=== PATIENT | female | born 1945 | race Two or more races ===

== ENCOUNTER 2024-10-26 09:49 | Inpatient (IN) | payer OTHER, MEDICAID, MEDICARE, SELFPAY ==
[2024-10-26] VITALS (10 sets, daily range): BP systolic 90–158; BP diastolic 53–84; PULSE 50–73; RESP 15–98; TEMP 36.3–36.7; O2SAT 97–100; BMI 27.3
--- NOTE | 2024-10-26 10:03 | EKG_ITS ---
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
--- NOTE | 2024-10-26 10:04 | XR_ITS ---
Examination: CT brain head without contrast. 2-D sagittal coronal reconstructions Date and time of exam:October 26, 2024, 1009 hrs., Comparison April 30, 2011 Indications: Stroke alert, onset focal neurologic deficit ataxia dizziness beginning 2 days ago worse this morning CTDI: vol (mGy):45.2. DLP: (mGycm):909 Technique: Multiple CT axial sections of the brain have been obtained, 5 mm slice thickness. Contrast has not been administered. 2-D sagittal, coronal reconstructions have been obtained Low dose protocols were performed. One or more of the following dose reduction techniques were used; automated exposure control, adjustment of the mA and/or KV according to patient size, use of iterative reconstruction technique. Findings: No significant ventricular enlargement. Intra-axial or extra-axial hemorrhage density is not seen. No mass effect or midline shift Basal cisterns are not remarkable. Fourth ventricle is midline. Cranial vault intact. Impression: Negative for acute hemorrhage, mass effect or midline shift
--- NOTE | 2024-10-26 10:04 | XR_ITS ---
Examination: CTA carotids with intravenous contrast CTA brain, head with intravenous contrast. 2-D sagittal, coronal reconstructions. 3-D reconstructions. Exam date and time: October 26, 2024, 1022 hrs. Indications: Stroke alert, onset focal neurologic deficit, dizziness beginning 2 days ago, worse this morning CTDI: vol (mGy) 32.1 DLP: (mGycm) 431 Technique: Multiple CTA axial brain, head carotid images post intravenous contrast injection 75 cc, Isovue-370. 2-D sagittal, coronal reconstructions. 3-D reconstructions, 3-D post processing including vascular maximum intensity projection images. Low dose protocols were performed. One or more of the following dose reduction techniques were used; automated exposure control, adjustment of the mA and/or KV according to patient size, use of iterative reconstruction technique. Findings: No significant common carotid carotid bifurcation or internal carotid artery stenoses. Dominant right vertebral artery in the neck, no critical vertebral artery stenoses Intracranial vertebral arteries, basilar artery and posterior cerebral branches No large vessel occlusions. Juxtasellar supraclinoid portions internal carotid arteries intact M1 segments middle cerebral arteries middle cerebral artery trifurcation vessels and anterior cerebral arteries fill with no large vessel occlusions Impression: No significant neck arterial stenoses No cerebral large vessel arterial occlusions or thrombus
--- NOTE | 2024-10-26 10:04 | XR_ITS ---
Examination: AP chest single view Technique one AP portable sitting chest single view Date and time: October 26, 2024, 1038 hrs., Comparison February 11, 2023. Indications: Dizziness today. Findings: No significant cardiac enlargement. No pneumonia or pulmonary edema. Prominent osteopenia. Impression: No pneumonia or pulmonary edema.
--- NOTE | 2024-10-26 10:12 | PD.EDDIZZY ---
ED Dizzyness RME/HPI General Chief Complaint: Dizziness Stated Complaint: GRIGGS/DIZZY AFTER EATING TODAY Time Seen by Provider: 10/26/24 10:06 Arrival date/time: 10/26/24 09:49 RME / HPI RME / HPI Narrative: 79 year old female with history of hypertension, diabetes, hyperlipidemia presents to the ED for evaluation of dizziness today. Patient reports the dizziness had been intermittent over the last 2-days. However, noted dizziness began after standing from eating breakfast at 09:00 AM today. Accompanied by a pulsating headache and blurred vision. States she took two 0.4mg SL Nitro with temporary improvement. States when symptoms returned several minutes later she took an additional two 0.4mg SL Nitro with no improvement, prompting ED visit. No other associated symptoms reported. Denies any changes in speech or gait. Denies fevers, chills, sweats, chest pain, cough, shortness of breath, abdominal pain, or urinary symptoms. Patient states she went to bed and woke up at 06:00 AM today feeling at her usual state of health. Related Data Home Medications ?Medication ?Instructions ?Recorded ?Confirmed carvedilol 3.125 mg tablet 3.125 mg PO BID 09/19/17 12/16/21 furosemide 40 mg tablet 40 mg PO QDAY 09/19/17 12/16/21 metformin 500 mg tablet,extended 500 mg PO QDAY Diabetes 09/19/17 12/16/21 release 24 hr gabapentin 300 mg capsule 300 mg PO TID 10/21/20 12/16/21 tiotropium bromide 2.5 2 puff inhalation QAM 10/21/20 12/16/21 mcg/actuation mist for inhalation (Spiriva Respimat) atorvastatin 20 mg tablet 20 mg PO HS 12/16/21 12/16/21 lisinopril 10 mg tablet 10 mg PO DAILY 12/16/21 12/16/21 potassium chloride 20 mEq 20 meq PO DAILY 12/16/21 12/16/21 tablet,extended release(part/cryst) Previous Rx's ?Medication ?Instructions ?Recorded albuterol sulfate 90 mcg/actuation 2 puff inhalation Q4H PRN 05/12/21 aerosol inhaler shortness of breath #8.5 grams diclofenac sodium 1 % topical gel 4 g topical QID #100 grams 12/16/21 hydrocodone 5 mg-acetaminophen 325 1 tab PO Q8H PRN pain #10 tabs 12/16/21 mg tablet ondansetron HCl 4 mg tablet 4 mg PO Q8H PRN nausea and 12/16/21 vomiting #14 tabs Allergies Allergy/AdvReac Type Severity Reaction Status Date / Time codeine Allergy Severe Nausea Verified 10/26/24 09:58 Review of Systems Review of Systems Systems Reviewed: All systems reviewed, normal except as documented Past Medical History Past Medical History CARDIAC: Positive Cardiac Disorders, Angina, Hypercholesterolemia and Hypertension RESPIRATORY: Positive Pneumonia GASTROINTESTINAL: Positive Hepatitis (Hep C) and Hiatal Hernia GENITOURINARY: Positive Genitourinary Disorders and Renal Disease REPRODUCTIVE: Positive Previous Pregnancies MUSCULOSKELETAL: Positive Musculoskeletal Disorders and Arthritis ENDOCRINE: Positive Endocrine Disorders, Diabetes Mellitus Type 2 and Hypothyroidism OTHER HISTORY: Positive Falls and Blood Transfusions Surgical History SURGICAL: Positive Abdominal Surgery and Section (X1) Social History SMOKING STATUS: Never smoker ED Exam Narrative Physical exam: GENERAL APPEARANCE: alert and oriented x 4, well-developed, well-nourished, no acute distress HEENT: Normocephalic, atraumatic; pupils equal, round, reactive to light; EOMI; mucous membranes pink, moist; oropharynx clear NECK: Supple LUNGS: CTABL; no wheezes, no rales, no rhonchi HEART: Regular rate, regular rhythm; normal S1, S2; no murmurs ABDOMEN: non distended; normal BS; soft, no tenderness, no guarding, no rebound; no masses, no organomegaly, no hernia BACK: no CVA tenderness EXTREMITIES: atraumatic; no edema NEUROLOGIC: awake; alert and oriented x4; cranial nerves II-XII grossly intact; no focal sensory or motor deficits PSYCHIATRIC: appropriate mood and affect SKIN: warm, dry, normal color; no rashes Course Quality Measures Suspected type of Stroke: Non Acute Last known well (date): 10/26/24 Last known well (time): 06:00 Tenecteplase given: Reason(s) TPA not given: Stroke severity too mild (non-disabling) not given stroke Orders Category Date Time Status Bedside Blood Glucose NOW Care 10/26/24 10:04 Active Ammunition Specialist NOW Care 10/26/24 10:04 Active Continuous Pulse Oximetry NOW Care 10/26/24 10:04 Completed EKG (ED ONLY) *Do not use* NOW Care 10/26/24 10:03 Completed In and Out Catheter NEEDED Care 10/26/24 10:04 Active Insert IV NOW Care 10/26/24 10:04 Active NIH Stroke Scale now Care 10/26/24 10:04 Active NPO NOW Care 10/26/24 10:04 Active Nurse Swallow Screen x1 Care 10/26/24 10:04 Active Consult to Neurology / Tele-Neurology Routine Cons 10/26/24 10:[address] angio stroke protocol Stat Exams 10/26/24 10:[address] stroke protocol Stat Exams 10/26/24 10:04 Completed EKG (ED Only) Stat Exams 10/26/24 10:03 Draft XR chest 1V portable Stat Exams 10/26/24 10:04 Completed Alcohol, Blood Medical Stat Lab 10/26/24 10:08 Completed CBC Stat Lab 10/26/24 10:08 Completed Comprehensive Metabolic Panel Stat Lab 10/26/24 10:08 Completed Drug Screen,Urine Stat Lab 10/26/24 14:18 Completed Magnesium Stat Lab 10/26/24 10:08 Completed Partial Thromboplastin Time Stat Lab 10/26/24 10:08 Completed Prothrombin Time with INR Stat Lab 10/26/24 10:08 Completed Troponin I Stat Lab 10/26/24 10:08 Completed Urinalysis, C/S if Indicated Stat Lab 10/26/24 14:18 Completed Sodium Chloride 0.9% 1000 ml [Ns] 1,000 ml Med 10/26/24 12:46 Discontinued IV 999 mls/hr Oxygen Delivery NOW RT 10/26/24 10:04 Active Vital Signs Vital signs: Vital Signs Pulse Rate 50 L 10/26/24 10:03 Respiratory Rate 16 10/26/24 10:03 Blood Pressure 90/53 L 10/26/24 10:03 Pulse Oximetry (%) 97 10/26/24 10:03 Oxygen Delivery Method Room Air 10/26/24 10:03 Pulse ox is 97% on room air which is adequate. Dizziness MDM Narrative MDM Narrative:: Lela Marie am scribing for and in the presence of Dr. Arreaga. Patient data External records reviewed:: [facility] previous records (I reviewed ED visit on 12/16/2021 ) Clinical information provided by:: patient Social determinants that could affect healthcare access:: none Patient has the following chronic illnesses:: hypertension, diabetes, hyperlipidemia How is presenting disease/condition affected by chronic disease/condition?: exacerbated by Evaluation data The following diagnostics were reviewed and interpreted by me:: lab results, radiology exam(s) and EKG tracing(s) (10/26/2024 @ 10:37 AM. Sinus bradycardia, rate 50, no acute ischemic changes, no STEMI. ) Lab and/or radiology exams considered but not ordered:: None Interpretation Summary: Ordering Physician: Elsa Arreaga MD Date of Service: 10/26/24 Procedure(s): CT stroke protocol Accession Number(s): [id number] cc: Omar Magaña MD; Elsa Arreaga MD~ Examination: CT brain head without contrast. 2-D sagittal coronal reconstructions Date and time of exam:October 26, 2024, 1009 hrs., Comparison April 30, 2011 Indications: Stroke alert, onset focal neurologic deficit ataxia dizziness beginning 2 days ago worse this morning CTDI: vol (mGy):45.2. DLP: (mGycm):909 Technique: Multiple CT axial sections of the brain have been obtained, 5 mm slice thickness. Contrast has not been administered. 2-D sagittal, coronal reconstructions have been obtained Low dose protocols were performed. One or more of the following dose reduction techniques were used; automated exposure control, adjustment of the mA and/or KV according to patient size, use of iterative reconstruction technique. Findings: No significant ventricular enlargement. Intra-axial or extra-axial hemorrhage density is not seen. No mass effect or midline shift Basal cisterns are not remarkable. Fourth ventricle is midline. Cranial vault intact. Impression: Negative for acute hemorrhage, mass effect or midline shift Dictated By: Omar Magaña MD Signed By: <Electronically signed by Omar Magaña MD in OV> 10/26/24 1022 Ordering Physician: Elsa Arreaga MD Date of Service: 10/26/24 Procedure(s): CT angio stroke protocol Accession Number(s): [id number] cc: Brad Ramirez ; Omar Magaña MD; Elsa Arreaga MD~ Examination: CTA carotids with intravenous contrast CTA brain, head with intravenous contrast. 2-D sagittal, coronal reconstructions. 3-D reconstructions. Exam date and time: October 26, 2024, 1022 hrs. Indications: Stroke alert, onset focal neurologic deficit, dizziness beginning 2 days ago, worse this morning CTDI: vol (mGy) 32.1 DLP: (mGycm) 431 Technique: Multiple CTA axial brain, head carotid images post intravenous contrast injection 75 cc, Isovue-370. 2-D sagittal, coronal reconstructions. 3-D reconstructions, 3-D post processing including vascular maximum intensity projection images. Low dose protocols were performed. One or more of the following dose reduction techniques were used; automated exposure control, adjustment of the mA and/or KV according to patient size, use of iterative reconstruction technique. Findings: No significant common carotid carotid bifurcation or internal carotid artery stenoses. Dominant right vertebral artery in the neck, no critical vertebral artery stenoses Intracranial vertebral arteries, basilar artery and posterior cerebral branches No large vessel occlusions. Juxtasellar supraclinoid portions internal carotid arteries intact M1 segments middle cerebral arteries middle cerebral artery trifurcation vessels and anterior cerebral arteries fill with no large vessel occlusions Impression: No significant neck arterial stenoses No cerebral large vessel arterial occlusions or thrombus Dictated By: Omar Magaña MD Signed By: <Electronically signed by Omar Magaña MD in OV> 10/26/24 1120 Ordering Physician: Elsa Arreaga MD Date of Service: 10/26/24 Procedure(s): XR chest 1V portable Accession Number(s): [id number] cc: Brad Ramirez ; Omar Magaña MD; Elsa Arreaga MD~ Examination: AP chest single view Technique one AP portable sitting chest single view Date and time: October 26, 2024, 1038 hrs., Comparison February 11, 2023. Indications: Dizziness today. Findings: No significant cardiac enlargement. No pneumonia or pulmonary edema. Prominent osteopenia. Impression: No pneumonia or pulmonary edema. Dictated By: Omar Magaña MD Signed By: <Electronically signed by Omar Magaña MD in OV> 10/26/24 1121 Medications / Prescriptions Medications or Prescriptions considered but not ordered:: None Medication administrations:: Medication Administration History Acetaminophen (Acetaminophen 325 Mg Tablet) 650 mg PO Q6H PRN PRN Reason: Fever >101.5 Stop: 11/25/24 15:34 Acetaminophen (Acetaminophen 325 Mg Tablet) 650 mg PO Q6H PRN PRN Reason: PAIN SCALE 1-3 (mild Stop: 11/25/24 15:34 Albuterol/Ipratropium (Albuterol/Ipratropium (Duoneb) Rt Radha 3 Ml Nebu) 3 ml INH Q2HR PRN PRN Reason: SHORTNESS OF BREATH OR WHEEZE Stop: 11/25/24 15:34 Albuterol/Ipratropium (Albuterol/Ipratropium (Duoneb) Rt Radha 3 Ml Nebu) 3 ml INH Q4HRRT [facility] Stop: 11/25/24 18:59 Dextrose (Dextrose 50%-Water Inj 50 Ml Syringe) 25 ml IV Q15MIN PRN PRN Reason: BG 50-70 responsive npo pt Stop: 11/25/24 15:43 Dextrose (Dextrose 50%-Water Inj 50 Ml Syringe) 50 ml IV Q15MIN PRN PRN Reason: BG <50 OR BG <70 & pt unresponsive Stop: 11/25/24 15:43 Glucagon (Glucagon Inj 1 Mg Vial) 1 mg IM Q15MIN PRN PRN Reason: BG <70, and no IV access Heparin Sodium (Porcine) (Heparin Sod Inj 5000 Unit/Ml Vial) 5,000 unit SC Q8HR SARIKA Stop: 11/09/24 21:59 Sodium Chloride (Ns) 1,000 mls @ 75 mls/hr IV .[id number] SARIKA Stop: 11/25/24 15:44 Insulin Human Lispro (Insulin Lispro (Admelog) 1 Unit/0.01 Ml Unit) 0 unit SC AC [facility]; Protocol Stop: 11/25/24 16:59 Ondansetron HCl (Ondansetron Inj 2 Mg/Ml Inj 2 Ml) 4 mg IVP Q6H PRN; Protocol PRN Reason: NAUSEA OR VOMITING Stop: 11/25/24 15:34 Discontinued Medications Sodium Chloride (Ns) 1,000 mls @ 999 mls/hr IV .Q1H1M ONE Stop: 10/26/24 13:46 Last Infusion: 10/26/24 15:20 Dose: Infused Documented By: Admin: 10/26/24 14:03 Dose: 999 mls/hr Documented By: YARELIS See above Consultations Consultation(s) initiated? (list below): Yes Consultation #1 (Physician, Specialty, Details): I spoke with teleneurologist Dr. Simmons. States patient is not a TNK candidate. Symptoms most likely due to the hypotension. Time: 10:29 Consultation #2 (Physician, Specialty, Details): I spoke with residents working with hospitalist Dr. Florez. Discussed patients PMHx, HPI, ED course, exam findings, labs, and radiology results. The hospitalist agree to accept the patient for admission. Diagnosis Dizziness Differential Diagnosis: benign paroxysmal positional vertigo, orthostatic hypotension, cerebrovascular accident and transient cerebral ischemia Most likely diagnosis given after review of the tests above:: JAQUI Dehydration Dizziness Admission Indicated Admission indicated?: indicated Admission Request Was there a request for admission?: Yes Admission Attestation Admission request attestation: Discussed case with [] from Hospitalist service regarding admission. Discussed patients ED course, exam findings, labs, and radiology results. The Hospitalist [agrees,declines] to accept the patient for admission. Disposition Plan Disposition Plan: Admit Discharge Plan Plan Patient Disposition: Admit Acute Care w/in Hospital Problem List Clinical Impression: JAQUI (acute kidney injury), Dehydration, Dizziness
--- NOTE | 2024-10-26 10:31 | ESCONSULT_ITS ---
Tele Neuro Consultation Consultation Date 10/26/24 Most Recent Vital Signs Last Vital Signs Pulse 60 10/26/24 10:08 Resp 16 10/26/24 10:03 BP 90/53 L 10/26/24 10:03 Pulse Ox 97 10/26/24 10:03 O2 Del Method Room Air 10/26/24 10:03 Consultation Narrative [facility] Patient Name:???MICHELLE CACERES Date of :???1945 Date of Service:???10/26/2024 10:07:08 Diagnosis:?R42 - Dizziness/ Vertigo/ Giddiness Impression: ?79 year old female with dizziness described as spinning but assocaited with sweating, visual loss and tingling in the arms. CTH is negative. NIHSS 3. Not a candidate for thrombolysis given LKW >4.5 hours and unlikely thrombotic event. Symptoms not consistent with LVO. I feel that her symptoms are most likely presyncopal in nature. Causes of her hypotension will need to be evaluated and addressed by her primary. Sign Out: ? Discussed with Emergency Department Provider Advanced Imaging:Advanced Imaging Deferred because: Stroke not suspected with clinical presentation and exam Metrics: Last Known Well: 10/24/2024 08:00:00 Dispatch Time: 10/26/2024 10:07:08 Arrival Time: 10/26/2024 09:49:00 Initial Response Time: 10/26/2024 10:10:20Symptoms: dizziness. Initial patient interaction: 10/26/2024 10:16:55 NIHSS Assessment Completed: 10/26/2024 10:23:00Patient is not a candidate for Thrombolytic. Thrombolytic Medical Decision: 10/26/2024 10:23:02Patient was not deemed candidate for Thrombolytic because of following reasons: LKW outside 4.5 hr window. . other diagnosis suspected Hypotension. CT Head: I personally reviewed all the CT images that were available to me and it showed: no evidence of hemorrhage. Primary Provider Notified of Diagnostic Impression and Management Plan on: 10/26/2024 10:30:37 History of Present Illness:Patient is a 79 year old Female. Patient was brought by private transportation with symptoms of dizziness. The patient reports several days of dizziness. She was dizzier this morning. She did take some Nitroglycerin on the advice of her PCP. The patient notes intermittent vertigo which started 3 days ago. This was worsened with head movement. The vertigo will last about 15 minutes. She not noted any hearing issues. She is not having issues with her vision. She notes that her vision will go dark when she is dizzy. She will start to sweat. She also gets tingling in the hands. ? Past Medical History: ?Hypertension Medications: No Anticoagulant use? No Antiplatelet use Reviewed EMR for current medications Allergies:? Reviewed,NKDA Social History: Smoking: No Family History: There is no family history of premature cerebrovascular disease pertinent to this consultation ROS : 14 Points Review of Systems was performed and was negative except mentioned in HPI. Past Surgical History: There Is No Surgical History Contributory To Today?s Visit ? Examination: BP(110/49),?Pulse(52), 1A: Level of Consciousness - Alert; keenly responsive?+ 0 1B: Ask Month and Age - Both Questions Right?+ 0 1C: Blink Eyes & Squeeze Hands - Performs Both Tasks?+ 0 2: Test Horizontal Extraocular Movements - Normal?+ 0 3: Test Visual Saenz - No Visual Loss?+ 0 4: Test Facial Palsy (Use Grimace if Obtunded) - Normal symmetry?+ 0 5A: Test Left Arm Motor Drift - No Drift for 10 Seconds?+ 0 5B: Test Right Arm Motor Drift - No Drift for 10 Seconds?+ 0 6A: Test Left Leg Motor Drift - Drift, but doesn't hit bed?+ 1 6B: Test Right Leg Motor Drift - Drift, but doesn't hit bed?+ 1 7: Test Limb Ataxia (FNF/Heel-Perez) - No Ataxia?+ 0 8: Test Sensation - Mild-Moderate Loss: Less Sharp/More Dull?+ 1 9: Test Language/Aphasia - Normal; No aphasia?+ 0 10: Test Dysarthria - Normal?+ 0 11: Test Extinction/Inattention - No abnormality?+ 0 NIHSS Score:?3 NIHSS Free Text :?Right leg decreased sensation. Pre-Morbid Modified Norbert Scale:1 Points = No significant disability despite symptoms; able to carry out all usual duties and activities Spoke with :?Dr. Arreaga, ED Physician This consult was conducted in real time using interactive audio and video technology. Patient was informed of the technology being used for this visit and agreed to proceed. Patient located in hospital and provider located at [facility]/office setting. Patient is being evaluated for possible acute neurologic impairment and high probability of imminent or life-threatening deterioration. I spent total of 35 minutes providing care to this patient, including time for face to face visit via telemedicine, review of medical records, imaging studies and discussion of findings with providers, the patient and/or family. Dr Lanre Simmons [facility] For Inpatient follow-up with [facility] physician please call [facility] at . As we are not an outpatient service for any post hospital discharge needs please contact the hospital for assistance. If you have any questions for the [facility] physicians or need to reconsult for clinical or diagnostic changes please contact us via [facility] at . Signature :?Lanre Simmons ?
[2024-10-26 10:33] LABS: Basophils # (Auto) 0.0 Thou/mm3 (0.0-0.2); Basophils % (Auto) 0 % (0-2.5); Eosinophils # (Auto) 0.2 Thou/mm3 (0.0-0.5); Eosinophils % (Auto) 3 % (0-10); Hematocrit 34.6 % (36.0-46.0); Hemoglobin 11.0 g/dL (12.0-16.0); Immature Granulocytes Auto 0.02 Thou/mm3 (0.00-0.00); Lymphocytes # (Auto) 2.0 Thou/mm3 (1.0-4.8); Lymphocytes % (Auto) 36 % (10-50); Mean Corpuscular HGB Conc 31.8 g/dl (31.0-37.0); Mean Corpuscular Hemoglobin 28.7 pg (25.0-35.0); Mean Corpuscular Volume 90 fL (80-100); Monocytes # (Auto) 0.6 Thou/mm3 (0.0-0.8); Monocytes % (Auto) 10 % (0-12); Neutrophils # (Auto) 2.7 Thou/mm3 (1.8-7.7); Neutrophils % (Auto) 50 % (37-80); Nucleated Red Blood Cell # 0.00 Thou/mm3 (0.00-0.00); Nucleated Red Blood Cell % 0 /100 WBC (0); Platelet Count 171 Thou/mm3 (140-440); RDW Standard Deviation 44.7 fL (36.4-46.3); Red Blood Count 3.83 Miln/mm3 (4.00-5.20); White Blood Count 5.5 Thou/mm3 (3.6-11.0)
[2024-10-26 10:48] LABS: INR 1.0 (0.9-1.3); Partial Thromboplastin Time 25.3 Seconds (22.0-36.0); Prothrombin Time 11.4 Seconds (9.0-12.2)
[2024-10-26 10:54] LABS: Alanine Aminotransferase 12 U/L (10-49); Albumin, Serum 4.0 gm/dL (3.4-4.8); Albumin/Globulin Ratio 1.8 (1.2-2.2); Alcohol, Blood Medical < 3.0 mg/dL (0-10.0); Alkaline Phosphatase 56 U/L (46-116); Anion Gap 10 (7-16); Aspartate Amino Transferase 25 U/L (0-34); BUN/Creatinine Ratio 13 Ratio (12-20); Bilirubin,Total 0.5 mg/dL (0.3-1.2); Blood Urea Nitrogen 35 mg/dL (9-23); Calcium 10.1 mg/dL (8.3-10.6); Calcium (Corrected) 10.1 mg/dL (8.5-10.1); Carbon Dioxide 26.0 mMol/L (20.0-31.0); Chloride 105 mMol/L (98-107); Creatinine (Component) 2.7 mg/dL (0.6-1.3); Estimated Creatinine Clearance 14.5 mL/min (>60); Globulin 2.2 gm/dL (2.3-3.5); Glucose 95 mg/dL (74-106); Magnesium 2.0 mg/dL (1.6-2.6); Osmolality,Calculated 289 (275-295); Potassium 5.0 mMol/L (3.4-5.1); Sodium 141 mMol/L (136-145); Total Protein 6.2 gm/dL (5.7-8.2); Troponin I < 0.020 ng/mL (0.0-0.045); eGFR 18 See Note
[2024-10-26] MEDS: SODIUM CHLORIDE 0.9% 1000 ML 1,000 ML 999 ML IV (14:03)
[2024-10-26 14:33] LABS: Collection Type, Urine Clean Catch; Squamous Epithelial Cell,Urine 0 /hpf (0-5)
[2024-10-26 14:50] LABS: Bilirubin,Urine Negative (Negative); Blood,Urine Negative (Negative); Clarity,Urine Clear (Clear/Hazy); Color,Urine Colorless (Lt Yel-Yel); Culture Indicated,Urine Not Indicated; Glucose, Urine Negative (Negative); Ketones,Urine Negative (Negative); Leukocyte Esterase,Urine Negative (Negative); Nitrite,Urine Negative (Negative); PH,Urine 6.5 (5.0-7.0); Protein,Urine Negative (Neg - Trace); RBC,Urine < 1 /hpf (0-3); Specific Gravity,Urine 1.014 (1.001-1.035); Urobilinogen,Urine Negative mg/dL (0.0-1.0); WBC,Urine < 1 /hpf (0-5)
[2024-10-26 15:01] LABS: Amphetamine/Methamp Scrn,U Negative (Negative); Barbiturate Screen,Urine Negative (Negative); Benzodiazepines Screen,Urine Negative (Negative); Benzoylecgonine Screen, Ur Negative (Negative); Fentanyl Screen,Urine Positive (Negative); Opiate Screen,Urine Positive (Negative); THC Screen,Urine Negative (Negative)
--- NOTE | 2024-10-26 15:35 | ECHO_ITS ---
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 16 - 28 cm?/m? Ascending Aorta Diameter 3.2 cm M-MODE AV Cusp Separation MM 1.4 cm DOPPLER AV Peak Velocity 324.0 cm/s AV Peak Gradient 42.0 mmHg AV Mean Gradient 24.0 mmHg AV Velocity Time Integral 75.0 cm LVOT Peak Velocity 101.0 cm/s LVOT Peak Gradient 4.1 mmHg LVOT Velocity Time Integral 26.3 cm LVOT Cardiac Index 3191.3 cm?/min?m? AV Area Cont Eq vti 1.0 cm? AV Area Cont Eq pk 0.9 cm? MV Area PHT 3.5 cm? Mitral E Point Velocity 62.7 cm/s Mitral A Point Velocity 82.6 cm/s Mitral E to A Ratio 0.8 LV E' Lateral Velocity 6.2 cm/s Mitral E to LV E' Lateral Ratio 10.1 LV E' Septal Velocity 8.4 cm/s Mitral E to LV E' Septal Ratio 7.5 TR Peak Velocity 283.7 cm/s TR Peak Gradient 32.2 mmHg PV Peak Velocity 122.0 cm/s PV Peak Gradient 6.0 mmHg FINDINGS Left Ventricle Normal left ventricular size, wall thickness, systolic function with no obvious regional wall motion abnormalities.There is grade I diastolic dysfunction of the left ventricle (impaired relaxation pattern). The ejection fraction is visually estimated at 55-60%. Right Ventricle The right ventricle is normal in size and systolic function. The estimated right ventricular systolic pressure, 39 mmHg with RAP 3. Mild-Moderated HTN Left Atrium The left atrium is normal by two-dimensional, color flow and Doppler imaging with no structural abnormalities, no thrombus formation present. Right Atrium The right atrium is normal by two-dimensional imaging, color flow and Doppler imaging with no structural abnormalities, no thrombus formation present. Atrial Septum The interatrial septum appears normal with no evidence of a shunt. Aorta The aorta is normal by two-dimensional, color flow and Doppler interrogation. Mitral Valve The mitral valve is normal by two-dimensional, color flow and Doppler interrogation. Trace mitral regurgitation. Aortic Valve Mild thickening of the aortic valve leaflets. Mild aortic valve regurgitation. Moderate aortic valve stenosis. Tricuspid Valve The tricuspid valve is normal by two-dimensional, color flow and Doppler interrogation. There is mild to moderate tricuspid valve regurgitation. Pulmonic Valve The pulmonic valve is not well visualized. There is no significant pulmonic valve regurgitation. Vessels The pulmonary artery appears normal. The inferior vena cava pulmonary and hepatic veins appear normal. Pericardium The pericardium is normal by two-dimensional imaging. There is no significant pericardial effusion. CONCLUSIONS Indication:Bradycardia with hypotension Normal left ventricular size and function. Grade I diastolic dysfunction. Approximate ejection fraction is 55- 60%. Normal Right ventricular size and function. RVSP 39 mmHg with RAP 3. Mild- Moderate HTN. Mild thickening of the aortic valve leaflets. Mild AR and moderate aortic stenosis Mild -moderate TR Nitza Pickett (Electronically Signed) Final Date: 28 October 2024 10:46
--- NOTE | 2024-10-26 15:57 | ESHP_ITS ---
<Statement entered by Linda Walsh MD - 10/26/24 17:03> I attest that I was physically present for the evaluation, physical examination, lab and imaging review of the patient with the residents. I discussed the case with the residents and agree with the findings and plans of care as documented below. After examination of the patient and review of the clinical data I feel that this patient needs admission to the hospital for further treatment/evaluation. Patient is a 79 years old female with past medical history of hypertension, hyperlipidemia, diabetes mellitus, CAD, CKD who presented to the ED with complaint of dizziness, blurry vision, headache. Her symptoms started this morning, when she felt like she is lightheaded, seemed everything looked black and felt like she would faint. She denied any fall and loss of consciousness. In the ED, stroke alert was called, patient underwent head CT and CTA head/neck, both were negative for acute findings. Teleneurology was consulted, recommended workup for presyncope. Patient was prescribed nitroglycerin by her cook helper vegetable which she took during those episode. In the ED, patient was found to have soft blood pressure and bradycardia. She does take beta-blockers at home. She also mentioned she has been having dysphagia with both liquids and solids . She has been eating soft food and has not been able to have good oral intake. Patient has been having these episodes for few months but today was the most severe. At the time of exam, patient had received 1 L of IV fluid bolus with improvement in blood pressure to 150s. Lab results were significant for BUN/creatinine of 39/2.7, baseline creatinine appears to be around 1.3-1.5. We will admit the patient for Workup and management of presyncope. We will obtain orthostatic vitals, echocardiography. We will continue with gentle IV hydration. We will obtain GI consult, speech therapy evaluation for evaluation of dysphagia. On exam, patient noted to have bilateral rhonchi and prolonged expiration, patient was exposed with hardwood smoke during childhood, we will start her on DuoNebs and obtain chest physiotherapy. Started insulin regimen for diabetes. Linda Walsh MD <Statement entered by Jane Sutton MD - 10/26/24 16:18> Ms. Feng is 79 yr female with PMH of CKD, HTN, CAD, and non insulin dependent T2DM who presented to ED today due to dizziness. Patient stated that she was at home in usual state of health when she started feeling dizzy with ringing in her ears. Upon arrival, stroke alert was called and tele neuro evaluated patient. NIHSS score was 3 with low concern of stroke. Patient endorsed taking SL nitroglycerin earlier in the day. She follows with cook helper vegetable Dr. Gomez in [place]. EKG showed bradycardia with HR 50s. She also follows with salon professional Dr. Lala for CKD. Patient has been complaining of dysphagia with solid foods. Has to have small soft meals. We will consult GI Dr. Rey for EGD to evaluate any possible causes of dysphagia. Admit for JAQUI on CKD and presyncope workup including orthostatic vitals and echo. Hold all rate lowering agents including her Coreg. Note reviewed, I agree with most of its contents and agree with the patient's care as documented by Dr. Saab. The patient's management plan was discussed with my attending physician Dr. Walsh. Jane Sutton, PGY-2 Documentation for date of: 10/26/24 HPI History of Present Illness Chief complaint: Dizziness History of present illness: This is a 79 year old female with past medical history of HTN, HLD, DM, CAD, CKD who presents for evaluation of intermittent dizziness that started this morning at 9 am. Patient reports associated pulsating headache, blurry vision, paresthesia in upper extremities, nausea, tinitus, and lightheadedness. Patient denies any changes in her speech or gait, fever, chills, chest pain, shortness of breath or urinary symptoms. Patient states that she was walking in her house this morning when she felt sudden onset lightheadedness and room-spinning dizziness which lasted for a few seconds. The second episode occurred approximately 30 minutes after. Patient denies any falls or LOC. Patient also reports poor PO intake recently secondary to worsening dysphagia to both liquid and solids. Patient states that she has been eating soft food in the last 1-2 years because of her intolerance to most solid and liquid food. Last EGD 6 years ago which was normal. Of note, past states that she took Nitro x2 when she was experiencing her symptoms which did not provide any relief. ED course: 1L bolus NS PMH: HTN, HLD, DM, CAD, CKD PSH:cholecystectomy, 4-5x hernia repairs, Allergies: Codeine-->tachycardia and nausea Meds: amitryiptiline 10 qday, meformin 500 qday, nitroglycerin prn, Carvedilol 3.125 BID, Atorvastatin 40 qday, lisinopril 10 qday, gabapentin 300 TID, Lasix 40 qday SH: denies alcohol, tobacco or drug use Code status: full code Chassis Mechanic: Dr. Gomez in [place] Swiss Type Screw Machine Operator: Dr. Lala GI: Dr. Rey (in the past) Review of Systems Review of Systems Systems Reviewed: All systems reviewed, normal except as documented Exam Vital Signs Temp Pulse Resp BP Pulse Ox O2 Del Method 97.7 F 65 20 158/75 H 100 Room Air 10/26/24 15:13 10/26/24 15:13 10/26/24 15:13 10/26/24 15:13 10/26/24 15:13 10/26/24 15:13 Narrative Exam General: 79 year old appearing female, in no acute distress, WDWN HEENT: NCAT, dry oral mucosa, external ears and nose without gross deformity Neck: Trachea midline, no thyromegaly CV: RRR with S1 and S2 without any murmurs or gallops, +2 pulses at DP Lungs: bilateral rhonchi noted, in no respiratory distress, productive cough at times Ext: no pretibial edema Neuro: CN 2-12 grossly intact, muscle strength and sensation intact throughout Psych: A&Ox3, good affect Results: Labs 10/26/24 10:08 10/26/24 10:08 Labs: Short CBC 10/26/24 Range/Units 10:08 WBC 5.5 (3.6-11.0) Thou/mm3 Hgb 11.0 L (12.0-16.0) g/dL Hct 34.6 L (36.0-46.0) % Plt Count 171 (140-440) Thou/mm3 BMP 10/26/24 10:08 Sodium 141 Potassium 5.0 Chloride 105 Carbon Dioxide 26.0 BUN 35 H Creatinine 2.7 H Glucose 95 Calcium 10.1 Cardiac Enzymes 10/26/24 Range/Units 10:08 Troponin I < 0.020 (0.0-0.045) ng/mL Liver Function 10/26/24 Range/Units 10:08 Total Bilirubin 0.5 (0.3-1.2) mg/dL AST 25 (0-34) U/L ALT 12 (10-49) U/L Alkaline Phosphatase 56 (46-116) U/L Albumin 4.0 (3.4-4.8) gm/dL Urine 10/26/24 Range/Units 14:18 Urine Color Colorless A (Lt Yel-Yel) Urine Clarity Clear (Clear/Hazy) Urine pH 6.5 (5.0-7.0) Ur Specific [place] 1.014 (1.001-1.035) Urine Protein Negative (Neg - Trace) Urine Glucose (UA) Negative (Negative) Quality Measures Quality Measures stroke Suspected type of Stroke: Non Acute Last known well (date): 10/26/24 Last known well (time): 06:00 Tenecteplase given: Reason(s) Tenecteplase not given: Outside the time window not given Rehab services: PT evaluation ordered VTE Prophylaxis: pharmaceutical Antithrombotic by day 2:: not indicated (describe) Statin ordered: n/a Anticoagulation ordered for A-fib or flutter (current or hx): not indicated Advance care planning discussed with:: patient Medications Home Medications and Allergies Home Medications ?Medication ?Instructions ?Recorded ?Confirmed ?Type carvedilol 3.125 mg tablet 3.125 mg PO BID 09/19/17 History furosemide 40 mg tablet 40 mg PO QDAY 09/19/1712/16 History metformin 500 mg tablet,extended 500 mg PO QDAY Diabet es 09/19/17 12/16/21 History release 24 hr gabapentin 300 mg capsule 300 mg PO TID 10/21/2012/16 History tiotropium bromide 2.5 2 puff inhalation QAM 12/16/21 History mcg/actuation mist for inhalation (Spiriva Respimat) atorvastatin 20 mg tablet 20 mg PO HS 12/16/21 2 History lisinopril 10 mg tablet 10 mg PO DAILY 12/16/2111/26 History potassium chloride 20 mEq 20 meq PO DAILY 12/16/21 History tablet,extended release(part/cryst) Allergies Allergy/AdvReac Type Severity Reaction Status Date / Time codeine Allergy Severe Nausea Verified 10/26/24 09:58 Visit Medications Acetaminophen (Acetaminophen 325 Mg Tablet) 650 mg PO Q6H PRN PRN Reason: Fever >101.5 Stop: 11/25/24 15:34 Acetaminophen (Acetaminophen 325 Mg Tablet) 650 mg PO Q6H PRN PRN Reason: PAIN SCALE 1-3 (mild Stop: 11/25/24 15:34 Albuterol/Ipratropium (Albuterol/Ipratropium (Duoneb) Rt Radha 3 Ml Nebu) 3 ml INH Q2HR PRN PRN Reason: SHORTNESS OF BREATH OR WHEEZE Stop: 11/25/24 15:34 Albuterol/Ipratropium (Albuterol/Ipratropium (Duoneb) Rt Radha 3 Ml Nebu) 3 ml INH Q4HRRT SARIKA Stop: 11/25/24 18:59 Dextrose (Dextrose 50%-Water Inj 50 Ml Syringe) 25 ml IV Q15MIN PRN PRN Reason: BG 50-70 responsive npo pt Stop: 11/25/24 15:43 Dextrose (Dextrose 50%-Water Inj 50 Ml Syringe) 50 ml IV Q15MIN PRN PRN Reason: BG <50 OR BG <70 & pt unresponsive Stop: 11/25/24 15:43 Glucagon (Glucagon Inj 1 Mg Vial) 1 mg IM Q15MIN PRN PRN Reason: BG <70, and no IV access Heparin Sodium (Porcine) (Heparin Sod Inj 5000 Unit/Ml Vial) 5,000 unit SC Q8HR SARIKA Stop: 11/09/24 21:59 Sodium Chloride (Ns) 1,000 mls @ 75 mls/hr IV .[id number] SARIKA Stop: 11/25/24 15:44 Insulin Human Lispro (Insulin Lispro (Admelog) 1 Unit/0.01 Ml Unit) 0 unit SC [facility]; Protocol Stop: 11/25/24 16:59 Ondansetron HCl (Ondansetron Inj 2 Mg/Ml Inj 2 Ml) 4 mg IVP Q6H PRN; Protocol PRN Reason: NAUSEA OR VOMITING Stop: 11/25/24 15:34 Discontinued Medications Sodium Chloride (Ns) 1,000 mls @ 999 mls/hr IV .Q1H1M ONE Stop: 10/26/24 13:46 Last Infusion: 10/26/24 15:20 Dose: Infused Assessment & Plan Plan 79F with PMH of HTN, HLD, DM, CAD, CKD who presents for evaluation of intermittent dizziness with associated pulsating headache, blurry vision, paresthesia in upper extremities, nausea, tinnitus, and lightheadedness. Patient also reports poor PO intake recently secondary to worsening dysphagia to both liquid and solids. Stroke ruled out by neuro. Found to have JAQUI. Patient was admitted for presyncope and JAQUI on CKD workup. #Presyncope #Dysphagia #Symptomatic Bradycardia #CAD #Hypotension Patient had 2 episodes of room-spinning dizziness with lightheaded this morning. Patient reports poor PO intake 2/2 dysphagia to both liquid and solid. Tele neuro was consulted who recommended work-up for pre-syncope and hypotension as there are low suspicion for stroke. CT head and neck negative. Trop negative. Hgb at baseline of 11. EKG shows sinus bradycardia. Vitals on admission: bradycardia in 50s with initial BP of 90/53 which improved to 158/75 after administration of 1L bolus NS in the ED. Differentials: Bradycardia secondary to medication (Carvedilol) vs sick sinus vs heart block, hypotension secondary to poor PO intake and dehydration (on lasix at home) vs medication side effect, dysphagie due to stricture vs mass vs hernia. Plan: - Admit to Tele - Ordered TTE - GI consulted, appreciate recs - Consulted speech therapy and dietitian for dysphagia - Ordered repeat EKG - IVF NS maintanance at 75 - Hold home Carvidelol - Orthostatic vital signs - We will resume rest of home medications once med rec is complete - CTM CBC and CMP #JAQUI on CKD Cr on admission was noted to be 2.7; up from baseline of 1.3. Most likely secondary to dehydration in the setting of poor PO intake due to dysphagia Plan: - CTM kidney function #Possible obstructive disease Quentionable underlying COPD. Bilateral rhonchi notd on exam. intermittent productive cough noted. Prolonged expiratory phase. CXR negative. Differentials include COPD vs asthma We will reassess for resolution of symptoms after breathing treatments. Plan: - Schedueled duoneb q4hr - Prn duoneb q2 - Ordered chest physiotherapy #HTN Chronic. Patient was noted to be hypotensive of 90/53 on admission which improved after adminsitration of 1L bolus LR. -Plan: - Hold home carvidelol libia to symptomatic bradycardia - Resume home lisinopril, lasix once med rec is complete #DM Chronic. On Metformin 500 qday at home. Plan: - SSI - Pending A1C Health Maintenance: Dispo: admit to tele DVT prophylaxis: Heparin GI prophylaxis: None Code status: Full code Diet: dyphagia I Plan of care discussed with attending Dr. Walsh and senior resident Dr. Sutton. Samantha Saab DO PGY1
[2024-10-26 16:04] LABS: Cardiac Risk Estimate 3.5 RATIO (3.7-5.6); Cholesterol 145 mg/dL (132-200); Glucose Estimated Average 134 mg/dL (80-131); HDL Cholesterol 41 mg/dL (40-60); Hemoglobin A1C 6.3 % Hgb (4.8-6.0); LDL Cholesterol,Calculated 79 mg/dL (0-130); Triglycerides 126 mg/dL (30-150)
[2024-10-26] MEDS: ACETAMINOPHEN 325 MG TABLET 650 MG PO (17:00)
[2024-10-26] MEDS: SODIUM CHLORIDE 0.9% 1000 ML 1,000 ML 75 ML IV (17:02)
[2024-10-26] MEDS: ALBUTEROL/IPRATROPIUM (Duoneb) RT SOL 3 ML NEBU INH ×2 (18:51→22:34)
--- NOTE | 2024-10-26 20:21 | PD.IMCONS ---
HPI Data of Consult Requesting Physician: Linda Florez MD Primary Care Provider: Brad Ramirez Consult Narrative Reason for consult: Dysphagia chronic liver disease History of present illness: 79 years of female I been asked by the ER physician for dysphagia and evaluation of chronic liver disease due to hepatitis C She has been treated with antiviral therapy and has been negative for hep C RNA by PCR quantitative analysis She has been followed by me a regular basis every 6 months for HCC screening She did have metabolic encephalopathy and CT angio protocol was negative for any acute stroke she was subsequently admitted cc:: cc: Linda Florez MD Review of Systems Review of Systems Systems Reviewed: All systems reviewed, normal except as documented Past Medical History Surgical History OTHER SURGICAL HX: 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 hep C RNA remains undetectable by quantitative analysis Diabetes mellitus type 2 Essential hypertension Hyperlipidemia Meds Home Medications and Allergies Home Medications ?Medication ?Instructions ?Recorded ?Confirmed ?Type carvedilol 3.125 mg tablet 3.125 mg PO BID 09/19/17 12/16/21 History furosemide 40 mg tablet 40 mg PO QDAY 09/19/17 12/16/21 History metformin 500 mg tablet,extended 500 mg PO QDAY Diabetes 09/19/17 12/16/21 History release 24 hr gabapentin 300 mg capsule 300 mg PO TID 10/21/20 12/16/21 History tiotropium bromide 2.5 2 puff inhalation QAM 10/21/20 12/16/21 History mcg/actuation mist for inhalation (Spiriva Respimat) atorvastatin 20 mg tablet 20 mg PO HS 12/16/21 12/16/21 History lisinopril 10 mg tablet 10 mg PO DAILY 12/16/21 12/16/21 History potassium chloride 20 mEq 20 meq PO DAILY 12/16/21 12/16/21 History tablet,extended release(part/cryst) Allergies Allergy/AdvReac Type Severity Reaction Status Date / Time codeine Allergy Severe Nausea Verified 10/26/24 09:58 Exam Vital Signs Temp Pulse Resp BP Pulse Ox O2 Del Method 98.0 F 73 18 125/65 100 Room Air 10/26/24 17:35 10/26/24 18:54 10/26/24 18:54 10/26/24 18:00 10/26/24 18:54 10/26/24 17:35 Constitutional Comments: Chronically ill-appearing Routine Respiratory Exam Comments: Normal to auscultation Routine Abdominal Exam Comments: Soft nontender Results Labs 10/26/24 10:08 10/26/24 10:08 Labs: Short CBC 10/26/24 Range/Units 10:08 WBC 5.5 (3.6-11.0) Thou/mm3 Hgb 11.0 L (12.0-16.0) g/dL Hct 34.6 L (36.0-46.0) % Plt Count 171 (140-440) Thou/mm3 BMP 10/26/24 10:08 Sodium 141 Potassium 5.0 Chloride 105 Carbon Dioxide 26.0 BUN 35 H Creatinine 2.7 H Glucose 95 Calcium 10.1 Cardiac Enzymes 10/26/24 Range/Units 10:08 Troponin I < 0.020 (0.0-0.045) ng/mL Liver Function 10/26/24 Range/Units 10:08 Total Bilirubin 0.5 (0.3-1.2) mg/dL AST 25 (0-34) U/L ALT 12 (10-49) U/L Alkaline Phosphatase 56 (46-116) U/L Albumin 4.0 (3.4-4.8) gm/dL Urine 10/26/24 Range/Units 14:18 Urine Color Colorless A (Lt Yel-Yel) Urine Clarity Clear (Clear/Hazy) Urine pH 6.5 (5.0-7.0) Ur Specific [place] 1.014 (1.001-1.035) Urine Protein Negative (Neg - Trace) Urine Glucose (UA) Negative (Negative) Assessment and Plan Additional Assessment & Plan Additional Plan: # Dysphagia # 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 consent obtained for fiberoptic esophagogastroduodenoscopy with possible biopsy possible therapeutic intervention under intravenous moderate sedation Thank you for the opportunity to participate in care of this patient
[2024-10-26] MEDS: HEPARIN SOD INJ 5000 UNIT/ML VIAL SC (21:18)
[2024-10-27] VITALS (22 sets, daily range): BP systolic 94–184; BP diastolic 50–90; PULSE 49–79; RESP 9–99; TEMP 36–37; O2SAT 92–100; BMI 27.8; BMI 28.0
[2024-10-27] MEDS: ALBUTEROL/IPRATROPIUM (Duoneb) RT SOL 3 ML NEBU INH ×6 (02:57→22:57)
[2024-10-27 05:32] LABS: Basophils # (Auto) 0.0 Thou/mm3 (0.0-0.2); Basophils % (Auto) 0 % (0-2.5); Eosinophils # (Auto) 0.1 Thou/mm3 (0.0-0.5); Eosinophils % (Auto) 3 % (0-10); Hematocrit 30.8 % (36.0-46.0); Hemoglobin 10.1 g/dL (12.0-16.0); Immature Granulocytes Auto 0.01 Thou/mm3 (0.00-0.00); Lymphocytes # (Auto) 1.6 Thou/mm3 (1.0-4.8); Lymphocytes % (Auto) 37 % (10-50); Mean Corpuscular HGB Conc 32.8 g/dl (31.0-37.0); Mean Corpuscular Hemoglobin 29.4 pg (25.0-35.0); Mean Corpuscular Volume 90 fL (80-100); Monocytes # (Auto) 0.5 Thou/mm3 (0.0-0.8); Monocytes % (Auto) 11 % (0-12); Neutrophils # (Auto) 2.1 Thou/mm3 (1.8-7.7); Neutrophils % (Auto) 49 % (37-80); Nucleated Red Blood Cell # 0.00 Thou/mm3 (0.00-0.00); Nucleated Red Blood Cell % 0 /100 WBC (0); Platelet Count 122 Thou/mm3 (140-440); RDW Standard Deviation 44.6 fL (36.4-46.3); Red Blood Count 3.43 Miln/mm3 (4.00-5.20); White Blood Count 4.4 Thou/mm3 (3.6-11.0)
[2024-10-27] MEDS: HEPARIN SOD INJ 5000 UNIT/ML VIAL SC ×3 (06:00→21:09)
[2024-10-27] MEDS: SODIUM CHLORIDE 0.9% 1000 ML 1,000 ML 75 ML IV ×2 (06:00→23:44)
[2024-10-27 06:33] LABS: Alanine Aminotransferase 9 U/L (10-49); Albumin, Serum 3.4 gm/dL (3.4-4.8); Albumin/Globulin Ratio 1.8 (1.2-2.2); Alkaline Phosphatase 46 U/L (46-116); Anion Gap 9 (7-16); Aspartate Amino Transferase 19 U/L (0-34); BUN/Creatinine Ratio 13 Ratio (12-20); Bilirubin,Total 0.3 mg/dL (0.3-1.2); Blood Urea Nitrogen 32 mg/dL (9-23); Calcium 9.4 mg/dL (8.3-10.6); Calcium (Corrected) 9.9 mg/dL (8.5-10.1); Carbon Dioxide 23.4 mMol/L (20.0-31.0); Chloride 110 mMol/L (98-107); Creatinine (Component) 2.4 mg/dL (0.6-1.3); Estimated Creatinine Clearance 16.5 mL/min (>60); Globulin 1.9 gm/dL (2.3-3.5); Glucose 85 mg/dL (74-106); Magnesium 1.8 mg/dL (1.6-2.6); Osmolality,Calculated 289 (275-295); Phosphorous 4.8 mg/dL (2.4-5.1); Potassium 4.2 mMol/L (3.4-5.1); Sodium 142 mMol/L (136-145); Total Protein 5.3 gm/dL (5.7-8.2); eGFR 20 See Note
--- NOTE | 2024-10-27 07:45 | ESPR_ITS ---
<Statement entered by Andria Sevilla MD - 10/27/24 17:15> Patient seen and examined at bedside. No acute events reported overnight. Patient's JAQUI is improving with fluids. Patient is pending EGD for her dysphagia. Speech evdaria saw patient and recommended restrictive diet eating nutritional needs also consult cardiology for further recommendations regarding patient's presyncope and symptomatic bradycardia. Will hold patient's nitroglycerin at home Coreg as well as any other antihypertensives. Pending echocardiogram. Patient also continue with outpatient course of levofloxacin which was started outpatient for her bronchitis. Will continue with chest physiotherapy and DuoNebs for breathing treatment to help with her productive cough and bilateral rhonchi. I discussed with and supervised the [employer] internship physician who took care of this patient. I personally saw and examined the patient and discussed the assessment and plan with the entire medicine team, including my attending Dr. Galvan, I agree with most of the assessment and plan as documented below Andria Sevilla M.D. PGY-3 Disclaimer: Despite multiple revisions, due to the dictation software being used, the document bellow may not be free of grammatical errors including phonetic/typographic errors. However, this does not deter from our commitment to providing health care in the patient's best interest in mind. <Statement entered by Jane Sutton MD - 10/27/24 15:00> Note reviewed, I agree with most of its contents and agree with the patient's care as documented by Dr. Saab. Patient examined at bedside. No events reported overnight. JAQUI is resolving with fluids-- Creatinine down trended to 2.4. EGD for dysphagia is pending. Bradycardia slowly resolving since withholding rate lowering agents including her Coreg. Cardiology was consulted today for evaluation of symptomatic bradycardia. This morning she denied any new or worsening symptoms. Possible causes include dehydration as evidenced by JAQUI (vasovagal) vs medication induced as she endorsed using nitroglycerin along with her Coreg. We will continue to hold rate agents and anti hypertensives. Echo is pending. Physical exam significant for rhonchi/congestion. Complete outpatient antibiotic course with levofloxacin for 2 more days in setting of bronchitis. The patient's management plan was discussed with my attending physician Dr. Galvan. Jane Sutton, PGY-2 Documentation for date of: 10/27/24 Subjective Subjective Interval history: 10/27/24: No acute events over night. Bradycardia still present despite holding her home Carvidelol. Otherwise vital signs have been stable. We are also holding her home blood pressure medications given soft BP. We have consulted cardiology for bradycardia and hypotension. Patient was seen by GI for dysphagia. Plan for EGD later today. Patient was evaluated and examined this morning. Patient denies any lightheadedness, dizziness, palpitations or shortness of breath. Patient tolerated her clear liquid diet for breakfast. Patient states that she failed to complete the stress test and is unsure of her heart diagnosis but most likely on etype of heart failure. Exam Vital Signs Temp Pulse Resp BP Pulse Ox O2 Del Method 96.8 F 52 L 18 105/63 98 Room Air 10/27/24 04:00 10/27/24 06:22 10/27/24 06:22 10/27/24 04:00 10/27/24 06:22 10/27/24 04:00 Narrative Exam General: 79 year old appearing female, in no acute distress, WDWN HEENT: NCAT, dry oral mucosa, external ears and nose without gross deformity Neck: Trachea midline, no thyromegaly CV: RRR with S1 and S2 without any murmurs or gallops, +2 pulses at DP Lungs: bilateral rhonchi noted, in no respiratory distress, productive cough at times Ext: no pretibial edema Neuro: CN 2-12 grossly intact, muscle strength and sensation intact throughout Psych: A&Ox3, good affect Objective Labs 10/28/24 05:37 10/28/24 05:37 Labs: Laboratory Results - last 24 hr 10/26/24 10/26/24 10/27/24 10:08 14:18 05:15 WBC 5.5 4.4 RBC 3.83 L 3.43 L Hgb 11.0 L 10.1 L Hct 34.6 L 30.8 L MCV 90 90 MCH 28.7 29.4 MCHC 31.8 32.8 RDW Std Deviation 44.7 44.6 Plt Count 171 122 L D Neut % (Auto) 50 49 Lymph % (Auto) 36 37 [place] % (Auto) 10 11 Eos % (Auto) 3 3 Baso % (Auto) 0 0 Neut # (Auto) 2.7 2.1 Lymph # (Auto) 2.0 1.6 [place] # (Auto) 0.6 0.5 Eos # (Auto) 0.2 0.1 Baso # (Auto) 0.0 0.0 Immature Gran # (Auto) 0.02 H 0.01 H Absolute Nucleated RBC 0.00 0.00 Immature Gran % 0 0 Nucleated RBC % 0 0 PT 11.4 INR 1.0 APTT 25.3 Sodium 141 142 Potassium 5.0 4.2 D Chloride 105 110 H Carbon Dioxide 26.0 23.4 Anion Gap 10 9 BUN 35 H 32 H Creatinine 2.7 H 2.4 H Estim Creat Clear Calc 14.5 L 16.5 L eGFR 18 L 20 L BUN/Creatinine Ratio 13 13 Glucose [address] Glu mg/dL 134 H Hemoglobin A1c 6.3 H Calculated Osmolality 289 289 Calcium 10.1 9.4 Corrected Calcium 10.1 9.9 Phosphorus 4.8 Magnesium 2.0 1.8 Total Bilirubin 0.5 0.3 AST 25 19 ALT 12 9 L Alkaline Phosphatase 56 46 Troponin I < 0.020 Total Protein 6.2 5.3 L Albumin 4.0 3.4 D Globulin 2.2 L 1.9 L Albumin/Globulin Ratio 1.8 1.8 Triglycerides 126 Cholesterol 145 LDL Cholesterol, Calc 79 HDL Cholesterol 41 Cholesterol/HDL Ratio 3.5 L Ur Collection Type Clean Catch Urine Color Colorless A Urine Clarity Clear Urine pH 6.5 Ur Specific [place] 1.014 Urine Protein Negative Urine Glucose (UA) Negative Urine Ketones Negative Urine Blood Negative Urine Nitrite Negative Urine Bilirubin Negative Urine Urobilinogen (Auto) Negative Ur Leukocyte Esterase Negative Urine RBC < 1 Urine WBC < 1 Ur Squamous Epith Cells 0 Urine Bacteria None Ur Culture Indicated? Not Indicated Urine Opiates Screen Positive A Urine Fentanyl Screen Positive A Ur Barbiturates Screen Negative U Amphetamin/Meth Scrn Negative U Benzodiazepines Scrn Negative U Cocaine Metab Screen Negative U Marijuana (THC) Screen Negative Ethyl Alcohol < 3.0 Quality Measures Quality Measures stroke Suspected type of Stroke: Non Acute Last known well (date): 10/26/24 Last known well (time): 06:00 Tenecteplase given: Reason(s) Tenecteplase not given: Stroke severity too mild (non-disabling) not given Rehab services: PT evaluation ordered VTE Prophylaxis: pharmaceutical Antithrombotic by day 2:: not indicated (describe) Statin ordered: >75 y/o moderate or high intensity dose Anticoagulation ordered for A-fib or flutter (current or hx): not indicated Advance care planning discussed with:: patient Assessment & Plan Assessment Current Active Medications: Generic Name Dose Route Start Last Admin Trade Name Freq PRN Reason Stop Dose Admin Acetaminophen 650 mg 10/26/24 15:35 Acetaminophen 325 Mg Tablet PO 11/25/24 15:34 Q6H PRN Fever >101.5 Acetaminophen 650 mg 10/26/24 15:35 10/26/24 17:00 Acetaminophen 325 Mg Tablet PO 11/25/24 15:34 650 mg Q6H PRN Administration PAIN SCALE 1-3 (mild Albuterol/Ipratropium 3 ml 10/26/24 15:35 Albuterol/Ipratropium (Duoneb) Rt Radha 3 Ml Nebu INH 11/25/24 15:34 Q2HR PRN SHORTNESS OF BREATH OR WHEEZE Albuterol/Ipratropium 3 ml 10/26/24 19:00 10/27/24 06:21 Albuterol/Ipratropium (Duoneb) Rt Radha 3 Ml Nebu INH 11/25/24 18:59 3 ml Q4HRRT SARIKA Administration Dextrose 25 ml 10/26/24 15:44 Dextrose 50%-Water Inj 50 Ml Syringe IV 11/25/24 15:43 Q15MIN PRN BG 50-70 responsive npo pt Dextrose 50 ml 10/26/24 15:44 Dextrose 50%-Water Inj 50 Ml Syringe IV 11/25/24 15:43 Q15MIN PRN BG <50 OR BG <70 & pt unresponsive Glucagon 1 mg 10/26/24 15:44 Glucagon Inj 1 Mg Vial IM Q15MIN PRN BG <70, and no IV access Heparin Sodium (Porcine) 5,000 unit 10/26/24 22:00 10/27/24 06:00 Heparin Sod Inj 5000 Unit/Ml Vial SC 11/09/24 21:59 5,000 unit Q8HR SARIKA Administration Sodium Chloride 1,000 mls @ 75 mls/hr 10/26/24 15:45 10/27/24 06:00 Ns IV 11/25/24 15:44 75 mls/hr .[id number] SARIKA Administration Magnesium Sulfate 4 gm in 50 mls @ 12.5 mls/hr 10/27/24 07:34 Magnesium Sulfate Ivpb IV 10/27/24 11:33 X1 ONE Insulin Human Lispro 0 unit 10/26/24 17:00 10/26/24 17:11 Insulin Lispro (Admelog) 1 Unit/0.01 Ml Unit SC 11/25/24 16:59 Not Given AC [facility] Protocol Ondansetron HCl 4 mg 10/26/24 15:35 Ondansetron Inj 2 Mg/Ml Inj 2 Ml IVP 11/25/24 15:34 Q6H PRN NAUSEA OR VOMITING Protocol Plan 79F with PMH of HTN, HLD, DM, CAD, CKD, treated HCV who presents for evaluation of intermittent dizziness with associated pulsating headache, blurry vision, paresthesia in upper extremities, nausea, tinnitus, and lightheadedness. Patient also reports poor PO intake recently secondary to worsening dysphagia to both liquid and solids. Stroke ruled out by neuro. Found to have JAQUI. Patient was admitted for presyncope workup and JAQUI on CKD. #Presyncope #Dysphagia #Symptomatic Bradycardia #CAD #Hypotension #Heart failure Patient had 2 episodes of room-spinning dizziness with lightheaded prior to admission. Patient reported poor PO intake 2/2 dysphagia to both liquid and solid. Tele neuro was consulted who recommended work-up for pre-syncope and hypotension as there is low suspicion for stroke. CT head and neck negative. Trop negative. Hgb at baseline of 11. EKG shows sinus bradycardia. Vitals on admission: bradycardia in 50s with initial BP of 90/53 which improved to 158/75 after administration of 1L bolus NS in the ED. Differentials: Bradycardia secondary to medication (Carvedilol) vs sick sinus vs heart block, hypotension secondary to poor PO intake and dehydration (on lasix at home) vs medication side effect, dysphagia 2/2 to stricture vs mass vs hernia vs motility pathology. Speech evaluation recommendation: Consistent carb, cardiac diet with Glucerna shake 240 ml BID with lunch and dinner. Plan: - Pending TTE - Plan for EGD today - Consulted cardiology, appreciate recs - IVF NS maintanance at 75 - Hold home Carvidelol - CTM CBC and CMP - PT - Resumed home Atorvastatin #JAQUI on CKD Cr on admission was noted to be 2.7 (baseline 1.3) which improved to 2.4. Most likely secondary to dehydration in the setting of poor PO intake due to dysphagia Plan: - CTM kidney function #Possible obstructive disease #Bronchitis Quentionable underlying COPD. Bilateral rhonchi notd on exam. intermittent productive cough noted. Prolonged expiratory phase. CXR negative. Of note, patient states that she was started on Levaquin on 10/22 but has not finished the course of antibiotic for bronchitis. Patient reported improvement of her symptoms after breathing treatments. questionable underlying COPD vs asthma. Plan: - Resume recently prescribed Levaquin for bronchitis - Schedueled duoneb q4hr - Prn duoneb q2 - chest physiotherapy #HTN Chronic. Patient was noted to be hypotensive of 90/53 on admission which improved after adminsitration of 1L bolus LR. -Plan: - Hold home carvidelol libia to symptomatic bradycardia - Hold home lisinopril, lasix due to soft BP #DM Chronic. On Metformin 500 qday at home. A1C: 6.3% #Hx of HCV infection Patient follow GI outpatient. History of treated HCV. Plan: - Continue to follow up outpatient with GI. Plan: - [facility] Health Maintenance: Dispo: admit to tele DVT prophylaxis: Heparin GI prophylaxis: None Code status: Full code Diet: NPO Plan of care discussed with attending Dr. Galvan and senior residents Dr. Sutton and Roel. Samantha Saab DO PGY1 Attending Provider Attestation/Addendum I have examined the patient, reviewed labs and imaging findings, discussed the case with the resident(s), and reviewed entered orders. I agree with the plan of care as outlined in this note, with these additional summaries/recommendations: Patient seen at bedside. Patient was admitted overnight for presyncopal episodes. At bedside she still endorses mild dizziness although overall improved. Etiology of for presyncope likely related to bradycardia. Patient was noted to have heart rate trending in the 50s. Patient continues to have intermittent bradycardia. Likely medication induced from Coreg or gabapentin. We will hold these medications for now. No evidence of sick sinus syndrome or heart block on EKG. Monitor on telemetry. Consult cardiology, recommendations appreciated. Obtain orthostatic vital signs, echocardiogram, and MRI brain. Stroke alert was called in the emergency room although low suspicion for CVA. Patient is pending MRI brain. She also endorses significant dysphagia and gastroenterology consulted with plans for endoscopic intervention. Patient also noted to have acute kidney injury which is most likely secondary to prerenal azotemia in the setting of low blood pressure and poor oral intake. Continue IV fluids and repeat renal panel in AM. Avoid nephrotoxic agents and renally dose medications. Continue to hold home antihypertensives for now. Continue insulin sliding scale with Accu-Cheks for diabetes mellitus type 2. Order A1c. Target blood sugar of 140-180 while hospitalized. Patient updated on the plan and in agreement. All questions answered to satisfaction. Please see residents note for additional details and management. Dr. Cole MD
[2024-10-27] MEDS: Magnesium Sulfate 4 GM Ivpb 4 GM/50 ML BAG IV (08:34)
--- NOTE | 2024-10-27 10:03 | PC.SS ---
Patient Irlanda Feng is a 79 Year old female admitted for PRE-Syncope Bradycardia. SS met with patient at bedside to discuss discharge plan and verify demographic information. Patient reports she lives at home with her . Patient reports her daughter, Emelia Frost is her surrogate decision maker, [phone]. Patient reports she is able to complete all ADL's independently. Patient does not utilize any source of DME to assist with ambulation. Choice of pharmacy is [facility]. Patient's PCP is Brad Ramirez in [place]. Patient also sees Dr. cross and a [facility] in [place]. At time of discharge patient will discharge home when medically cleared. Discharge plan: Home Next of kin: Daughter, Emelia Frost
--- NOTE | 2024-10-27 11:52 | PD.RESCONSUL ---
HPI Data of Consult Requesting Physician: Chris Galvan MD Admitting Provider: Linda Florez MD Attending Provider: Chris Galvan MD Primary Care Provider: Brad Ramirez Consult Narrative Reason for consult: Pre-syncope for one week History of present illness: HPI: A 79-year-old female patient with past medical history of hypertension, hyperlipidemia, diabetes mellitus, coronary artery disease, CKD, history of hep C status posttreatment, was admitted due to intermittent dizziness. Patient reported that for the past week she has been having multiple episodes of dizziness, associated with headache. She reported also blurry vision, nausea, however no vomiting. Patient reported that she has history of tinnitus for the past 2 years. However she did not experience any positional dizziness. She also reported that she feels her vision become black for a few seconds and then resolved spontaneously. On further questioning patient reported that she has some episodes of orthopnea and she put 2 pillows under her back when she sleeps, she denied lower extremity swelling and denied any chest pain or palpitation. On review of other system patient reported that she has been having worsening of her dysphagia and she was unable to tolerate solid food and recently she become unable to tolerate liquid diet. Of note patient is on Lasix and carvedilol as she continues to use these medications despite her difficulty eating and drinking. Home medications: Upon presentation to the ED her blood pressure was 90/53, pulse rate of 50, temperature 97.9 and she was saturating well on room air. Hemoglobin is 10.1, potassium 4.2, serum creatinine was 2.7. Her baseline serum creatinine is 1.3. Blood glucose was 85. Initially stroke alert was called due to her presentation. CT scan and CT angio were done and both of them were negative. Neurologist recommended to start workup for presyncope PMH: As above Social hx: Alcohol: Denied Tobacco: Denied Illicit drugs: Denied Allergies: Codeine cc:: cc: Chris Galvan MD Review of Systems Review of Systems Systems Reviewed: All systems reviewed, normal except as documented Exam Vital Signs Temp Pulse Resp BP Pulse Ox O2 Del Method 97.0 F 58 L 18 133/67 H 99 Room Air 10/27/24 08:00 10/27/24 10:45 10/27/24 10:45 10/27/24 08:00 10/27/24 10:45 10/27/24 08:00 Narrative Exam GEN: AOx3, able to speak full sentences HEENT: NC/AC, PERRLA, oral mucosa dry, neck supple CVS: RRR, S1-S2 present, no murmurs appreciated RESP: CTAB GI: soft,non distended, non tender, NBS MSK: able to move all 4 limbs, no lower extremity edema SKIN: warm and dry TECHNOLOGY APPLICATIONS CONSULTANT: CN II-XII and Sensation grossly intact. Results Labs 10/27/24 05:15 10/27/24 05:15 Labs: Short CBC 10/27/24 Range/Units 05:15 WBC 4.4 (3.6-11.0) Thou/mm3 Hgb 10.1 L (12.0-16.0) g/dL Hct 30.8 L (36.0-46.0) % Plt Count 122 L D (140-440) Thou/mm3 BMP 10/27/24 05:15 Sodium 142 Potassium 4.2 D Chloride 110 H Carbon Dioxide 23.4 BUN 32 H Creatinine 2.4 H Glucose 85 Calcium 9.4 Liver Function 10/27/24 Range/Units 05:15 Total Bilirubin 0.3 (0.3-1.2) mg/dL AST 19 (0-34) U/L ALT 9 L (10-49) U/L Alkaline Phosphatase 46 (46-116) U/L Albumin 3.4 D (3.4-4.8) gm/dL Urine 10/26/24 Range/Units 14:18 Urine Color Colorless A (Lt Yel-Yel) Urine Clarity Clear (Clear/Hazy) Urine pH 6.5 (5.0-7.0) Ur Specific [place] 1.014 (1.001-1.035) Urine Protein Negative (Neg - Trace) Urine Glucose (UA) Negative (Negative) Quality Measures Quality Measures stroke Suspected type of Stroke: Non Acute Last known well (date): 10/26/24 Last known well (time): 06:00 Tenecteplase given: Reason(s) Tenecteplase not given: Stroke severity too mild (non-disabling) not given Rehab services: PT evaluation ordered VTE Prophylaxis: mechanical Antithrombotic by day 2:: not indicated (describe) Statin ordered: >75 y/o moderate or high intensity dose Anticoagulation ordered for A-fib or flutter (current or hx): not indicated Advance care planning discussed with:: patient and spouse Medications Home Medications and Allergies Home Medications ?Medication ?Instructions ?Recorded ?Confirmed ?Type carvedilol 3.125 mg tablet 3.125 mg PO BID 09/19/17 10/26/24 History furosemide 40 mg tablet 40 mg PO QDAY 09/19/17 10/26/24 History metformin 500 mg tablet,extended 500 mg PO QDAY Diabetes 09/19/17 10/26/24 History release 24 hr gabapentin 300 mg capsule 300 mg PO TID 10/21/20 10/26/24 History atorvastatin 20 mg tablet 40 mg PO HS 12/16/21 10/26/24 History lisinopril 10 mg tablet 10 mg PO DAILY 12/16/21 10/26/24 History amitriptyline 10 mg tablet 10 mg PO HS 10/26/24 10/26/24 History nitroglycerin 0.4 mg sublingual 0.4 mg buccal [id number] PRN chest 10/26/24 10/26/24 History tablet pain Allergies Allergy/AdvReac Type Severity Reaction Status Date / Time codeine Allergy Severe Nausea Verified 10/26/24 09:58 Visit Medications Acetaminophen (Acetaminophen 325 Mg Tablet) 650 mg PO Q6H PRN PRN Reason: Fever >101.5 Stop: 11/25/24 15:34 Acetaminophen (Acetaminophen 325 Mg Tablet) 650 mg PO Q6H PRN PRN Reason: PAIN SCALE 1-3 (mild Stop: 11/25/24 15:34 Last Admin: 10/26/24 17:00 Dose: 650 mg Albuterol/Ipratropium (Albuterol/Ipratropium (Duoneb) Rt Radha 3 Ml Nebu) 3 ml INH Q2HR PRN PRN Reason: SHORTNESS OF BREATH OR WHEEZE Stop: 11/25/24 15:34 Albuterol/Ipratropium (Albuterol/Ipratropium (Duoneb) Rt Radha 3 Ml Nebu) 3 ml INH Q4HRRT SARIKA Stop: 11/25/24 18:59 Last Admin: 10/27/24 10:45 Dose: 3 ml Atorvastatin Calcium (Atorvastatin Calcium 20 Mg Tablet) 40 mg PO HS SARIKA Stop: 11/26/24 20:59 Dextrose (Dextrose 50%-Water Inj 50 Ml Syringe) 25 ml IV Q15MIN PRN PRN Reason: BG 50-70 responsive npo pt Stop: 11/25/24 15:43 Dextrose (Dextrose 50%-Water Inj 50 Ml Syringe) 50 ml IV Q15MIN PRN PRN Reason: BG <50 OR BG <70 & pt unresponsive Stop: 11/25/24 15:43 Glucagon (Glucagon Inj 1 Mg Vial) 1 mg IM Q15MIN PRN PRN Reason: BG <70, and no IV access Heparin Sodium (Porcine) (Heparin Sod Inj 5000 Unit/Ml Vial) 5,000 unit SC Q8HR SARIKA Stop: 11/09/24 21:59 Last Admin: 10/27/24 06:00 Dose: 5,000 unit Sodium Chloride (Ns) 1,000 mls @ 75 mls/hr IV .[id number] SARIKA Stop: 11/25/24 15:44 Last Admin: 10/27/24 06:00 Dose: 75 mls/hr Levofloxacin/Dextrose (Levaquin Ivpb) 500 mg in 100 mls @ 100 mls/hr IV Q48H [facility] Stop: 11/03/24 10:44 Insulin Human Lispro (Insulin Lispro (Admelog) 1 Unit/0.01 Ml Unit) 0 unit SC AC [facility]; Protocol Stop: 11/25/24 16:59 Last Admin: 10/27/24 07:50 Dose: Not Given Ondansetron HCl (Ondansetron Inj 2 Mg/Ml Inj 2 Ml) 4 mg IVP Q6H PRN; Protocol PRN Reason: NAUSEA OR VOMITING Stop: 11/25/24 15:34 Discontinued Medications Sodium Chloride (Ns) 1,000 mls @ 999 mls/hr IV .Q1H1M ONE Stop: 10/26/24 13:46 Last Infusion: 10/26/24 15:20 Dose: Infused Magnesium Sulfate (Magnesium Sulfate Ivpb) 4 gm in 50 mls @ 12.5 mls/hr IV X1 ONE Stop: 10/27/24 11:33 Last Admin: 10/27/24 08:34 Dose: 12.5 mls/hr Assessment & Plan Plan Summary: A 79-year-old female patient with past medical history of hypertension, hyperlipidemia, diabetes mellitus, coronary artery disease, CKD, history of hep C status posttreatment, was admitted due to intermittent dizziness. Patient reported that for the past week she has been having multiple episodes of dizziness, associated with headache. Patient was admitted for failure to thrive secondary to dysphagia and also for JAQUI. Cardiology team was consulted for presyncope workup. Assessment and plan #Presyncopal episode #Dehydration #? Sinus node dysfunction #History of CHF #History of coronary artery disease Patient reported with near fainting, dizziness, and blackening of her vision for few minutes. Has been having the symptoms for the past week. 3 occasions. Patient has history of worsening dysphagia, recently she was unable to tolerate liquid diet. Patient continued to take her oral meds which includes carvedilol and lisinopril. On presentation her blood pressure was 90/53 and her heart rate was 50 beats per minute irregular heartbeats. EKG showed sinus bradycardia with no heart block or QT prolongation. Serum creatinine increased to 2.7 baseline 1.3-1.5. Most likely secondary to decreased oral intake and continue using diuretics. Orthostatic vitals showed normal response, his vitals were taken after the patient was resuscitated with 1 L of fluids and was on fluid maintenance. Less likely to be autonomic dysfunction secondary to her diabetes as all her A1c in her chart below 7. Plan ? Continue IV fluids ? Hold lisinopril for now ? Hold carvedilol for now, ? Strict in and out ? Continue IV fluid maintenance ? Continue telemonitoring ? Echocardiogram ordered ? PT evaluation ? Replete electrolytes as needed, keep potassium above 4 and magnesium above 2 #Dysphagia #JAQUI on CKD #Questionable COPD #History of hypertension #History of diabetes mellitus #History of hep C infection Plan ? Follow-up with the primary team with recommendations Thank you for your consultation,, please do not hesitate if you have any question or concerns. - Patient's plan and care discussed with my attending, Dr. Warner Anand MD Internal Medicine PGY-3
[2024-10-27] MEDS: LEVOFLOXACIN/D5W 500 MG IVPB 500 MG/100 ML BAG 100 MG IV (12:26)
[2024-10-27 13:52] LABS: B-Type Natriuretic Peptide 196 pg/mL (0-100)
[2024-10-27 16:19] LABS: Thyroid Stimulating Hormone 5.45 uIU/mL (0.55-4.78)
--- NOTE | 2024-10-27 17:50 | SUR.PHASEI ---
1750: Pt. wakes to name then drifts back to sleep, vitals stable, breathing unlabored, no complaint of pain or nausea, no dressing in place, no active bleed noted, report received from Bianca LAWRENCE.
--- NOTE | 2024-10-27 17:56 | PC.PT ---
PT eval only. Patient is I with transfers and ambulation without AD. Family can assist patient to go to restroom or ambulate in hallway prn.
--- NOTE | 2024-10-27 18:22 | SUR.PHASEI ---
1822: Pt. AAOx4, vitals stable, breathing unlabored, no complaint of pain or nausea, no dressing in place, no active bleed noted, pt. tolerated sips of water well, pt. ambulated to bed with minimal assist, gave report to Mónica LAWRENCE prior to transfer to room 262. Family made aware of transfer to room.
[2024-10-27] MEDS: ATORVASTATIN CALCIUM 20 MG TABLET 40 MG PO (21:09)
[2024-10-28] VITALS (13 sets, daily range): BP systolic 107–144; BP diastolic 53–77; PULSE 58–75; RESP 15–97; TEMP 36.7–37; O2SAT 93–99; BMI 27.4
[2024-10-28] MEDS: ALBUTEROL/IPRATROPIUM (Duoneb) RT SOL 3 ML NEBU INH ×6 (02:02→22:48)
[2024-10-28] MEDS: HEPARIN SOD INJ 5000 UNIT/ML VIAL SC ×3 (05:11→22:13)
[2024-10-28 06:14] LABS: Basophils # (Auto) 0.0 Thou/mm3 (0.0-0.2); Basophils % (Auto) 1 % (0-2.5); Eosinophils # (Auto) 0.1 Thou/mm3 (0.0-0.5); Eosinophils % (Auto) 2 % (0-10); Hematocrit 31.0 % (36.0-46.0); Hemoglobin 10.2 g/dL (12.0-16.0); Immature Granulocytes Auto 0.01 Thou/mm3 (0.00-0.00); Lymphocytes # (Auto) 1.3 Thou/mm3 (1.0-4.8); Lymphocytes % (Auto) 32 % (10-50); Mean Corpuscular HGB Conc 32.9 g/dl (31.0-37.0); Mean Corpuscular Hemoglobin 29.4 pg (25.0-35.0); Mean Corpuscular Volume 89 fL (80-100); Monocytes # (Auto) 0.4 Thou/mm3 (0.0-0.8); Monocytes % (Auto) 10 % (0-12); Neutrophils # (Auto) 2.3 Thou/mm3 (1.8-7.7); Neutrophils % (Auto) 56 % (37-80); Nucleated Red Blood Cell # 0.00 Thou/mm3 (0.00-0.00); Nucleated Red Blood Cell % 0 /100 WBC (0); Platelet Count 133 Thou/mm3 (140-440); RDW Standard Deviation 45.8 fL (36.4-46.3); Red Blood Count 3.47 Miln/mm3 (4.00-5.20); White Blood Count 4.1 Thou/mm3 (3.6-11.0)
[2024-10-28 06:40] LABS: Alanine Aminotransferase 7 U/L (10-49); Albumin, Serum 3.4 gm/dL (3.4-4.8); Albumin/Globulin Ratio 1.8 (1.2-2.2); Alkaline Phosphatase 48 U/L (46-116); Anion Gap 11 (7-16); Aspartate Amino Transferase 20 U/L (0-34); BUN/Creatinine Ratio 11 Ratio (12-20); Bilirubin,Total 0.5 mg/dL (0.3-1.2); Blood Urea Nitrogen 23 mg/dL (9-23); Calcium 9.1 mg/dL (8.3-10.6); Calcium (Corrected) 9.6 mg/dL (8.5-10.1); Carbon Dioxide 22.4 mMol/L (20.0-31.0); Chloride 113 mMol/L (98-107); Creatinine (Component) 2.1 mg/dL (0.6-1.3); Estimated Creatinine Clearance 18.2 mL/min (>60); Globulin 1.9 gm/dL (2.3-3.5); Glucose 85 mg/dL (74-106); Magnesium 2.3 mg/dL (1.6-2.6); Osmolality,Calculated 293 (275-295); Phosphorous 3.4 mg/dL (2.4-5.1); Potassium 3.8 mMol/L (3.4-5.1); Sodium 146 mMol/L (136-145); Total Protein 5.3 gm/dL (5.7-8.2); eGFR 24 See Note
[2024-10-28] MEDS: FAMOTIDINE 20 MG TABLET PO (08:42)
[2024-10-28] MEDS: guaiFENesin SYRUP 200 MG/10 ML UDC PO (12:12)
--- NOTE | 2024-10-28 13:32 | ESPR_ITS ---
<Statement entered by Andria Sevilla MD - 10/28/24 14:32> Overnight, no acute events reported. Patient seen and examined at bedside. Patient's bradycardia and esophageal symptoms are improving. Echocardiogram this afternoon showed normal left ventricular size and function, grade 1 diastolic dysfunction, ejection fraction 55 to 60%, RVSP of 39 mmHg suggesting mild to moderate pulmonary hypertension, mild thickening of aortic valve leaflets and mild to moderate aortic stenosis/tricuspid regurg. Patient's creatinine is improving however still elevated. Will continue to encourage p.o. intake including solid foods and fluids. Pending further cardiology recommendations at this time. I discussed with and supervised the internal control analyst physician who took care of this patient. I personally saw and examined the patient and discussed the assessment and plan with the entire medicine team, including my attending Dr. Galvan, I agree with most of the assessment and plan as documented below Andria Sevilla M.D. PGY-3 Disclaimer: Despite multiple revisions, due to the dictation software being used, the document bellow may not be free of grammatical errors including phonetic/typographic errors. However, this does not deter from our commitment to providing health care in the patient's best interest in mind. Documentation for date of: 10/28/24 Subjective Subjective Interval history: 10/28/24: No acute events overnight. Vital signs have been stable. Patient's bradycardia has improved to 60s from 50s since her home medications were held. Patient has completed EGD with GI and was seen by the cardiology team yesterday. Patient was examined and evaluated at bedside. Patient denies any lightheadedness or dizziness. Patient reports great improvement in her swalloing after her esophageal stenosis was dilated by GI yesterday. Patient is tolerating her diet well with no nausea or emesis. Patient requests medication for her lung congestion due to bronchitis. Currently pending TTE. Exam Vital Signs Temp Pulse Resp BP Pulse Ox O2 Del Method O2 Flow Rate 98.4 F 65 18 117/61 98 Room Air 3 10/28/24 07:50 10/28/24 10:16 10/28/24 10:16 10/28/24 07:50 10/28/24 10:16 10/28/24 07:50 10/28/24 04:00 Narrative Exam General: 79 year old appearing female, in no acute distress, WDWN HEENT: NCAT, dry oral mucosa, external ears and nose without gross deformity Neck: Trachea midline, no thyromegaly CV: RRR with S1 and S2 without any murmurs or gallops, +2 pulses at DP Lungs: bilateral rhonchi noted, in no respiratory distress, productive cough at times Ext: no pretibial edema Neuro: CN 2-12 grossly intact, muscle strength and sensation intact throughout Psych: A&Ox3, good affect Objective Labs 10/29/24 04:30 10/29/24 04:30 Labs: Laboratory Results - last 24 hr 10/27/24 10/27/24 10/28/24 05:15 15:37 05:37 WBC 4.1 RBC 3.47 L Hgb 10.2 L Hct 31.0 L MCV 89 MCH 29.4 MCHC 32.9 RDW Std Deviation 45.8 Plt Count 133 L Neut % (Auto) 56 Lymph % (Auto) 32 [place] % (Auto) 10 Eos % (Auto) 2 Baso % (Auto) 1 Neut # (Auto) 2.3 Lymph # (Auto) 1.3 [place] # (Auto) 0.4 Eos # (Auto) 0.1 Baso # (Auto) 0.0 Immature Gran # (Auto) 0.01 H Absolute Nucleated RBC 0.00 Immature Gran % 0 Nucleated RBC % 0 Sodium 146 H Potassium 3.8 Chloride 113 H Carbon Dioxide 22.4 Anion Gap 11 BUN 23 Creatinine 2.1 H Estim Creat Clear Calc 18.2 L eGFR 24 L BUN/Creatinine Ratio 11 L Glucose 85 Calculated Osmolality 293 Calcium 9.1 Corrected Calcium 9.6 Phosphorus 3.4 Magnesium 2.3 Total Bilirubin 0.5 AST 20 ALT 7 L Alkaline Phosphatase 48 B-Natriuretic Peptide 196 H Total Protein 5.3 L Albumin 3.4 Globulin 1.9 L Albumin/Globulin Ratio 1.8 TSH 5.45 H Quality Measures Quality Measures VTE therapy and stroke Suspected type of Stroke: Non Acute Last known well (date): 10/26/24 Last known well (time): 06:00 Tenecteplase given: Reason(s) Tenecteplase not given: Stroke severity too mild (non-disabling) not given Rehab services: PT evaluation ordered VTE Prophylaxis: mechanical Antithrombotic by day 2:: not indicated (describe) Statin ordered: >75 y/o moderate or high intensity dose Anticoagulation ordered for A-fib or flutter (current or hx): not indicated Advance care planning discussed with:: patient Assessment & Plan Assessment Current Active Medications: Generic Name Dose Route Start Last Admin Trade Name Freq PRN Reason Stop Dose Admin Acetaminophen 650 mg 10/26/24 15:35 Acetaminophen 325 Mg Tablet PO 11/25/24 15:34 Q6H PRN Fever >101.5 Acetaminophen 650 mg 10/26/24 15:35 10/26/24 17:00 Acetaminophen 325 Mg Tablet PO 11/25/24 15:34 650 mg Q6H PRN Administration PAIN SCALE 1-3 (mild Albuterol/Ipratropium 3 ml 10/26/24 15:35 Albuterol/Ipratropium (Duoneb) Rt Radha 3 Ml Nebu INH 11/25/24 15:34 Q2HR PRN SHORTNESS OF BREATH OR WHEEZE Albuterol/Ipratropium 3 ml 10/26/24 19:00 10/28/24 10:16 Albuterol/Ipratropium (Duoneb) Rt Radha 3 Ml Nebu INH 11/25/24 18:59 3 ml Q4HRRT SARIKA Administration Atorvastatin Calcium 40 mg 10/27/24 21:00 10/27/24 21:09 Atorvastatin Calcium 20 Mg Tablet PO 11/26/24 20:59 40 mg HS SARIKA Administration Dextrose 25 ml 10/26/24 15:44 Dextrose 50%-Water Inj 50 Ml Syringe IV 11/25/24 15:43 Q15MIN PRN BG 50-70 responsive npo pt Dextrose 50 ml 10/26/24 15:44 Dextrose 50%-Water Inj 50 Ml Syringe IV 11/25/24 15:43 Q15MIN PRN BG <50 OR BG <70 & pt unresponsive Glucagon 1 mg 10/26/24 15:44 Glucagon Inj 1 Mg Vial IM Q15MIN PRN BG <70, and no IV access Guaifenesin 100 mg 10/28/24 15:00 Guaifenesin Syrup 200 Mg/10 Ml Udc PO 11/27/24 14:59 QID PRN COUGH Protocol Heparin Sodium (Porcine) 5,000 unit 10/26/24 22:00 10/28/24 05:11 Heparin Sod Inj 5000 Unit/Ml Vial SC 11/09/24 21:59 5,000 unit Q8HR SARIKA Administration Sodium Chloride 1,000 mls @ 75 mls/hr 10/26/24 15:45 10/27/24 23:44 Ns IV 11/25/24 15:44 75 mls/hr .[id number] SARIKA Administration Levofloxacin/Dextrose 500 mg in 100 mls @ 100 mls/hr 10/27/24 10:45 10/27/24 13:26 Levaquin Ivpb IV 11/03/24 10:44 Infused Q48H SARIKA Infusion Insulin Human Lispro 0 unit 10/26/24 17:00 10/28/24 12:07 Insulin Lispro (Admelog) 1 Unit/0.01 Ml Unit SC 11/25/24 16:59 Not Given AC SARIKA Protocol Ondansetron HCl 4 mg 10/26/24 15:35 Ondansetron Inj 2 Mg/Ml Inj 2 Ml IVP 11/25/24 15:34 Q6H PRN NAUSEA OR VOMITING Protocol Pantoprazole Sodium 20 mg 10/29/24 09:00 Pantoprazole 20 Mg Tablet PO 11/28/24 08:59 QDAY SARIKA Plan 79F with PMH of HTN, HLD, DM, CAD, CKD, treated HCV who presents for evaluation of intermittent dizziness with associated pulsating headache, blurry vision, paresthesia in upper extremities, nausea, tinnitus, and lightheadedness. Patient also reports poor PO intake recently secondary to worsening dysphagia to both liquid and solids. Stroke ruled out by neuro. Found to have JAQUI. Patient was admitted for presyncope workup and JAQUI on CKD. #Presyncope #Dysphagia(improved) #Esophageal stenosis s/p dilation #Grade I esophageal varices #Gastritis with hemorrhage #Symptomatic Bradycardia #CAD #Hypotension #Heart failure Patient had 2 episodes of room-spinning dizziness with lightheaded prior to admission. Patient reported poor PO intake 2/2 dysphagia to both liquid and solid. Tele neuro was consulted who recommended work-up for pre-syncope and hypotension as there is low suspicion for stroke. CT head and neck negative. Trop negative. Hgb at baseline of 11. EKG shows sinus bradycardia. Vitals on admission: bradycardia in 50s with initial BP of 90/53 which improved to 158/75 after administration of 1L bolus NS in the ED. Patient's bradycardia is most likely secondary to her home medications (Carvedilol, gabapentin) vs sick sinus, hypotension most likely secondary to poor PO intake and dehydration (on lasix at home) vs medication side effect, dysphagia 2/2 to stricture which was dilated. EGD showed benign esophageal stenosis which was dilated, grade I esophageal varices, gastritis with hemorrhage and edema. Cardiology evaluated the patient, recommends holding her home carvedilol and lisinopril, continue with IVF and TTE. Plan: - Pending TTE - 2g sodium diet - IVF NS maintanance at 75 - Hold home Carvidelol and lisinopril - CTM CBC and CMP - Start panteprazole qday - PT - COntinue home Atorvastatin #AJQUI on CKD Cr on admission was noted to be 2.7 (baseline 1.3) which improved to 2.1. Most likely secondary to dehydration in the setting of poor PO intake due to dysphagia Plan: - CTM kidney function - Continue IVF as above #Possible obstructive disease #Bronchitis Quentionable underlying COPD. Bilateral rhonchi notd on exam. intermittent productive cough noted. Prolonged expiratory phase. CXR negative. Of note, patient states that she was started on Levaquin on 10/22 but has not finished the course of antibiotic for bronchitis. Patient reported improvement of her symptoms after breathing treatments. questionable underlying COPD vs asthma. Plan: - Continue recently prescribed Levaquin for bronchitis - Ordered Guafenesin - Schedueled duoneb q4hr - Prn duoneb q2 - chest physiotherapy #HTN Chronic. Patient was noted to be hypotensive of 90/53 on admission which improved after adminsitration of 1L bolus LR. -Plan: - Hold home carvidelol libia to symptomatic bradycardia - Hold home lisinopril, lasix due to soft BP and JAQUI #DM Chronic. On Metformin 500 qday at home. A1C: 6.3% Plan: - SSI #Hx of HCV infection Patient follow GI outpatient. History of treated HCV. Plan: - Continue to follow up outpatient with GI. Health Maintenance: Dispo: admit to tele DVT prophylaxis: Heparin GI prophylaxis: Panteprazole Code status: Full code Diet: 2g sodium diet Plan of care discussed with attending Dr. Galvan and senior residents Dr. Sevilla. Samantha Saab DO PGY1 Attending Provider Attestation/Addendum I have examined the patient, reviewed labs and imaging findings, discussed the case with the resident(s), and reviewed entered orders. I agree with the plan of care as outlined in this note, with these additional summaries/recommendations: Patient seen at bedside. No acute overnight events. At this time patient currently denies lightheadedness and dizziness. Patient diagnosed with bradycardia. Most likely medication induced versus sick sinus syndrome. No evidence of heart block. Continue to hold Coreg and gabapentin as potential causes for bradycardia. Continue to monitor on telemetry. In-house cardiology following, recommendations appreciated. Patient pending transthoracic echocardiogram. Orthostatic vital signs negative. Patient endorsed significant dysphagia on admission and is status post EGD yesterday that revealed benign esophageal stenosis status post dilation, grade 1 esophageal varices, and gastritis with hemorrhage. Start low salt diet 2 g max and pantoprazole. Significant acute kidney injury present. Still unclear if patient has underlying CKD. On admission creatinine 2.7 and has improved to 2.1 with IV fluids which we will continue. Continue to avoid nephrotoxic agents and renally dose medications. If renal function worsens we will consult nephrology. Continue insulin sliding scale with Accu-Cheks for diabetes mellitus type 2. A1c 6.3%. Target blood sugar of 140-180 while hospitalized. Patient updated on the plan and in agreement. All questions answered to satisfaction. Please see residents note for additional details and management. Dr. Cole MD
[2024-10-28] MEDS: SODIUM CHLORIDE 0.9% 1000 ML 1,000 ML 75 ML IV (14:05)
--- NOTE | 2024-10-28 18:56 | ESPR_ITS ---
Documentation for date of: 10/28/24 Subjective Subjective Interval history: A 79-year-old female patient with past medical history of hypertension, hyperlipidemia, diabetes mellitus, coronary artery disease, CKD, history of hep C status posttreatment, was admitted due to intermittent dizziness. Patient reported that for the past week she has been having multiple episodes of dizziness, associated with headache. She reported also blurry vision, nausea, however no vomiting. Patient reported that she has history of tinnitus for the past 2 years. However she did not experience any positional dizziness. She also reported that she feels her vision become black for a few seconds and then resolved spontaneously. On further questioning patient reported that she has some episodes of orthopnea and she put 2 pillows under her back when she sleeps, she denied lower extremity swelling and denied any chest pain or palpitation. On review of other system patient reported that she has been having worsening of her dysphagia and she was unable to tolerate solid food and recently she become unable to tolerate liquid diet. Of note patient is on Lasix and carvedilol as she continues to use these medications despite her difficulty eating and drinking. Home medications: Upon presentation to the ED her blood pressure was 90/53, pulse rate of 50, temperature 97.9 and she was saturating well on room air. Hemoglobin is 10.1, potassium 4.2, serum creatinine was 2.7. Her baseline serum creatinine is 1.3. Blood glucose was 85. Initially stroke alert was called due to her presentation. CT scan and CT angio were done and both of them were negative. 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 Objective Labs 10/29/24 04:30 10/29/24 04:30 Labs: Laboratory Results - last 24 hr 10/28/24 05:37 WBC 4.1 RBC 3.47 L Hgb 10.2 L Hct 31.0 L MCV 89 MCH 29.4 MCHC 32.9 RDW Std Deviation 45.8 Plt Count 133 L Neut % (Auto) 56 Lymph % (Auto) 32 [place] % (Auto) 10 Eos % (Auto) 2 Baso % (Auto) 1 Neut # (Auto) 2.3 Lymph # (Auto) 1.3 [place] # (Auto) 0.4 Eos # (Auto) 0.1 Baso # (Auto) 0.0 Immature Gran # (Auto) 0.01 H Absolute Nucleated RBC 0.00 Immature Gran % 0 Nucleated RBC % 0 Sodium 146 H Potassium 3.8 Chloride 113 H Carbon Dioxide 22.4 Anion Gap 11 BUN 23 Creatinine 2.1 H Estim Creat Clear Calc 18.2 L eGFR 24 L BUN/Creatinine Ratio 11 L Glucose 85 Calculated Osmolality 293 Calcium 9.1 Corrected Calcium 9.6 Phosphorus 3.4 Magnesium 2.3 Total Bilirubin 0.5 AST 20 ALT 7 L Alkaline Phosphatase 48 Total Protein 5.3 L Albumin 3.4 Globulin 1.9 L Albumin/Globulin Ratio 1.8 Assessment & Plan A&P Narrative A 79-year-old female patient with past medical history of hypertension, hyperlipidemia, diabetes mellitus, coronary artery disease, CKD, history of hep C status posttreatment, was admitted due to intermittent dizziness. Patient reported that for the past week she has been having multiple episodes of dizziness, associated with headache. Patient was admitted for failure to thrive secondary to dysphagia and also for JAQUI. Cardiology team was consulted for presyncope workup. Assessment and plan #Presyncopal episode #Dehydration #? Sinus node dysfunction #History of CHF #History of coronary artery disease Patient reported with near fainting, dizziness, and blackening of her vision for few minutes. Has been having the symptoms for the past week. 3 occasions. Patient has history of worsening dysphagia, recently she was unable to tolerate liquid diet. Patient continued to take her oral meds which includes carvedilol and lisinopril. On presentation her blood pressure was 90/53 and her heart rate was 50 beats per minute irregular heartbeats. EKG showed sinus bradycardia with no heart block or QT prolongation. Serum creatinine increased to 2.7 baseline 1.3-1.5. Most likely secondary to decreased oral intake and continue using diuretics. Orthostatic vitals showed normal response, his vitals were taken after the patient was resuscitated with 1 L of fluids and was on fluid maintenance. Less likely to be autonomic dysfunction secondary to her diabetes as all her A1c in her chart below 7. Plan ? Continue IV fluids ? Hold lisinopril for now ? Hold carvedilol for now, ? Strict in and out ? Continue IV fluid maintenance ? Continue telemonitoring ? Echocardiogram ordered ? PT evaluation ? Replete electrolytes as needed, keep potassium above 4 and magnesium above 2 #Dysphagia #JAQUI on CKD #Questionable COPD #History of hypertension #History of diabetes mellitus #History of hep C infection Plan ? Follow-up with the primary team with recommendations
[2024-10-28] MEDS: ATORVASTATIN CALCIUM 20 MG TABLET 40 MG PO (20:16)
--- NOTE | 2024-10-28 20:26 | ESPR_ITS ---
Documentation for date of: 10/28/24 Subjective Subjective Interval history: Patient evaluated Hemoglobin hematocrit 10.2 and 31.0 BUN/creatinine 23 and 2.1 Platelet 133,000 Upper endoscopy showed proximal esophageal diverticulum with dilatation 1 esophageal varices not large enough for band ligation and diffuse gastritis due to hypertensive portal gastropathy Exam Vital Signs Temp Pulse Resp BP Pulse Ox O2 Del Method O2 Flow Rate 98.6 F 75 18 107/53 L 99 Room Air 3 10/28/24 16:00 10/28/24 18:26 10/28/24 18:26 10/28/24 16:00 10/28/24 18:26 10/28/24 16:00 10/28/24 04:00 Objective Labs 10/28/24 05:37 10/28/24 05:37 Labs: Laboratory Results - last 24 hr 10/28/24 05:37 WBC 4.1 RBC 3.47 L Hgb 10.2 L Hct 31.0 L MCV 89 MCH 29.4 MCHC 32.9 RDW Std Deviation 45.8 Plt Count 133 L Neut % (Auto) 56 Lymph % (Auto) 32 [place] % (Auto) 10 Eos % (Auto) 2 Baso % (Auto) 1 Neut # (Auto) 2.3 Lymph # (Auto) 1.3 [place] # (Auto) 0.4 Eos # (Auto) 0.1 Baso # (Auto) 0.0 Immature Gran # (Auto) 0.01 H Absolute Nucleated RBC 0.00 Immature Gran % 0 Nucleated RBC % 0 Sodium 146 H Potassium 3.8 Chloride 113 H Carbon Dioxide 22.4 Anion Gap 11 BUN 23 Creatinine 2.1 H Estim Creat Clear Calc 18.2 L eGFR 24 L BUN/Creatinine Ratio 11 L Glucose 85 Calculated Osmolality 293 Calcium 9.1 Corrected Calcium 9.6 Phosphorus 3.4 Magnesium 2.3 Total Bilirubin 0.5 AST 20 ALT 7 L Alkaline Phosphatase 48 Total Protein 5.3 L Albumin 3.4 Globulin 1.9 L Albumin/Globulin Ratio 1.8 Impressions Impression: Grade 1 esophageal varices not large enough for band ligation Diffuse gastritis CKD stage III unlikely hepatorenal syndrome Plan Continue present treatment Assessment & Plan A&P Narrative # Dysphagia # 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 consent obtained for fiberoptic esophagogastroduodenoscopy with possible biopsy possible therapeutic intervention under intravenous moderate sedation Thank you for the opportunity to participate in care of this patient Time Spent With Patient Time: Total time spent is greater than 50% in coordination of care (as documented) at patient's floor/unit and/or counseling patient:
[2024-10-29] VITALS (8 sets, daily range): BP systolic 115–137; BP diastolic 56–71; PULSE 62–71; RESP 12–96; TEMP 36.1–36.4; O2SAT 96–99
[2024-10-29] MEDS: ALBUTEROL/IPRATROPIUM (Duoneb) RT SOL 3 ML NEBU INH ×3 (02:00→10:34)
[2024-10-29] MEDS: SODIUM CHLORIDE 0.9% 1000 ML 1,000 ML 75 ML IV (02:10)
--- NOTE | 2024-10-29 04:36 | PC.NURSE ---
[facility] downtime occurred on 10/29/24 from 0200 to 0435
[2024-10-29] MEDS: HEPARIN SOD INJ 5000 UNIT/ML VIAL SC (05:13)
[2024-10-29 05:52] LABS: Basophils # (Auto) 0.0 Thou/mm3 (0.0-0.2); Basophils % (Auto) 0 % (0-2.5); Eosinophils # (Auto) 0.1 Thou/mm3 (0.0-0.5); Eosinophils % (Auto) 2 % (0-10); Hematocrit 30.3 % (36.0-46.0); Hemoglobin 9.8 g/dL (12.0-16.0); Immature Granulocytes Auto 0.01 Thou/mm3 (0.00-0.00); Lymphocytes # (Auto) 1.3 Thou/mm3 (1.0-4.8); Lymphocytes % (Auto) 29 % (10-50); Mean Corpuscular HGB Conc 32.3 g/dl (31.0-37.0); Mean Corpuscular Hemoglobin 29.3 pg (25.0-35.0); Mean Corpuscular Volume 90 fL (80-100); Monocytes # (Auto) 0.5 Thou/mm3 (0.0-0.8); Monocytes % (Auto) 11 % (0-12); Neutrophils # (Auto) 2.6 Thou/mm3 (1.8-7.7); Neutrophils % (Auto) 57 % (37-80); Nucleated Red Blood Cell # 0.00 Thou/mm3 (0.00-0.00); Nucleated Red Blood Cell % 0 /100 WBC (0); Platelet Count 116 Thou/mm3 (140-440); RDW Standard Deviation 47.1 fL (36.4-46.3); Red Blood Count 3.35 Miln/mm3 (4.00-5.20); White Blood Count 4.5 Thou/mm3 (3.6-11.0)
[2024-10-29 06:19] LABS: Alanine Aminotransferase 8 U/L (10-49); Albumin, Serum 3.3 gm/dL (3.4-4.8); Albumin/Globulin Ratio 1.7 (1.2-2.2); Alkaline Phosphatase 49 U/L (46-116); Anion Gap 11 (7-16); Aspartate Amino Transferase 20 U/L (0-34); BUN/Creatinine Ratio 11 Ratio (12-20); Bilirubin,Total 0.3 mg/dL (0.3-1.2); Blood Urea Nitrogen 19 mg/dL (9-23); Calcium 9.2 mg/dL (8.3-10.6); Calcium (Corrected) 9.8 mg/dL (8.5-10.1); Carbon Dioxide 22.5 mMol/L (20.0-31.0); Chloride 113 mMol/L (98-107); Creatinine (Component) 1.8 mg/dL (0.6-1.3); Estimated Creatinine Clearance 21.8 mL/min (>60); Globulin 1.9 gm/dL (2.3-3.5); Glucose 99 mg/dL (74-106); Magnesium 1.9 mg/dL (1.6-2.6); Osmolality,Calculated 292 (275-295); Phosphorous 3.3 mg/dL (2.4-5.1); Potassium 4.2 mMol/L (3.4-5.1); Sodium 146 mMol/L (136-145); Total Protein 5.2 gm/dL (5.7-8.2); eGFR 29 See Note
--- NOTE | 2024-10-29 07:51 | ESDS_ITS ---
<Statement entered by Jane Sutton MD - 10/29/24 22:15> Note reviewed, I agree with most of its contents and agree with the patient's care as documented by Dr. Saab. The patient's management plan was discussed with my attending physician Dr. Galvan. Jane Sutton, PGY-2 <Statement entered by Andria Sevilla MD - 10/29/24 16:53> I discussed with and supervised the consultants intern physician who took care of this patient. I personally saw and examined the patient and discussed the assessment and plan with the entire medicine team, including my attending Dr. Galvan, I agree with most of the assessment and plan as documented below Andria Sevilla M.D. PGY-3 Planned Discharge Date 10/29/24 DS: Providers Provider Date of admission: 10/28/24 19:43 Primary care physician: Brad Ramirez Admitting Provider: Linda Florez MD Attending Provider on Admission: Chris Galvan MD Consults: 10/26/24 10:04 Consult to Neurology / Tele-Neurology Routine Comment: Consulting Provider: [facility] 10/26/24 15:41 Referral Registered Dietitian Stat Comment: dysphagia evaluation Referral Speech Therapy Stat Comment: 10/26/24 15:42 Consult to Gastroenterology Stat Comment: Dysphagia of liquid and solid Consulting Provider: Chelsea Rey 10/27/24 10:15 Consult to Cardiology Routine Comment: pre syncope with bradycardia Consulting Provider: Warner Rod 10/27/24 11:39 Referral Physical Therapy Routine Comment: Physician Instructions: Attending Provider on DC: Dr. Galvan Discharging Provider: Resident Marcela Anticipated date of discharge: 10/29/24 DS: Diagnosis Problem List Completed Was Problem List Reviewed/Reconciled?: Yes Hospital Course Hospital Course Hospital course: 79F with PMH of HTN, HLD, DM, CAD, CKD, treated HCV who presented for evaluation of intermittent dizziness with associated pulsating headache, blurry vision, par esthesia in upper extremities, nausea, tinnitus, and lightheadedness. Patient also reported poor PO intake recently secondary to worsening dysphagia to both liquid and solids. Stroke ruled out by neuro. Found to have JAQUI. Patient was admitted for presyncope workup and JAQUI on CKD. Patient had 2 episodes of room- spinning dizziness with lightheaded prior to admission. Patient also reported poor PO intake 2/2 dysphagia to both liquid and solid. Tele neuro was consulted who recommended work-up for pre-syncope and hypotension as there is low suspicion for stroke. CT head and neck negative. Trop negative. Hgb at baseline of 11. EKG shows sinus bradycardia. Vitals on admission: bradycardia in 50s with initial BP of 90/53 which improved to 158/75 after administration of 1L bolus NS in the ED. Cardiology was consulted in regards to patient's bradycardia, who recommended stopping her home Carvidelol and lisinopril. Patient's bradycardia improved to HR in 60s and 70s. Thus, her bradycardia was most likely secondary to her home medications (Carvidelol and gabapentin) vs sick sinus. Patient's hypotension most likely secondary to poor PO intake and dehydration (on lasix at home) vs medication side effect Patient's dysphagia was thought to be secondary to esophageal stenosis which was later found on EGD by our GI specialist. Patient's esophageal stenosis was dilated with great improvement in patient's oral intake tolerence. EGD also revealed grade I esophageal varices and gastritis with hemorrhage and edema. TTE was performed which was significant for moderate aortic stenosis and TR and diastolic dysfunction. Moreover, Patient's Cr was noted to be 2.7 (baseline 1.3) which improved to 1.8 after IVF hydration. This was most likely secondary to dehydration in the setting of poor PO intake due to dysphagia. On initial exam, patient was noted to have rhonchi, this was most likely due to the recently diagnosed bronchitis for her as she was prescribed with Levaquin outpatient. We have given patient one dose of levaquin (renally dose). Patient exam findings improve and her saturation remained within normal limits. Patient's all other medical problems were managed throughout her hospital stay. Overall, patient's condition improved and is hemodynamically stable with vital signs within normal limits. Patient is in stable condition for discharge and has been cleared by cardiology for discharge as well. Advised patient to stop taking home lasix to prevent another episode of dehydration and presyncope. Advised them to discuss this with their supervisor personnel clerks or PCP in their next appointment and resume if warranted by them. #Presyncope #Dysphagia(improved) #Esophageal stenosis s/p dilation #Grade I esophageal varices #Gastritis with hemorrhage #Symptomatic Bradycardia #CAD #Hypotension #Heart failure #JAQUI on CKD #Possible obstructive disease #Bronchitis #HTN #DM #Hx of HCV infection Stop taking Coreg until you see your supervisor personnel clerks. Decrease your gabapentin dose from 300TID to 100 TID. Hold off taking Meloxicam until you see your PCP. It can worsen your kidney function. Follow up with your supervisor personnel clerks in 1-2 weeks. Plan of care discussed with attending Dr. Galvan and senior residents Dr. Sutton and Roel. Samantha Saab DO PGY1 Status at Discharge Functional status at discharge: independent ambulation Overall status at discharge: patient is back to baseline Time Spent with Patient Time attestation: Total time spent providing and/or coordinating discharge services: Time spent: Greater than 30 minutes Exam Vital Signs Temp Pulse Resp BP Pulse Ox O2 Del Method O2 Flow Rate 97.2 F 66 18 120/56 L 98 Room Air 3 10/29/24 04:00 10/29/24 06:27 10/29/24 06:27 10/29/24 04:00 10/29/24 06:27 10/29/24 04:00 10/28/24 04:00 Narrative Exam General: 79 year old appearing female, in no acute distress, WDWN HEENT: NCAT, dry oral mucosa, external ears and nose without gross deformity Neck: Trachea midline, no thyromegaly CV: RRR with S1 and S2 without any murmurs or gallops, +2 pulses at DP Lungs: bilateral rhonchi noted, in no respiratory distress, productive cough at times Ext: no pretibial edema Neuro: CN 2-12 grossly intact, muscle strength and sensation intact throughout Psych: A&Ox3, good affect Discharge Plan Plan Patient Disposition: HOME (Self Care) Patient condition on transfer: Stable Prescriptions/Referrals Prescriptions/Med Rec: Continued furosemide 40 mg Tablet 40 mg PO QDAY atorvastatin 20 mg tablet 40 mg PO HS amitriptyline 10 mg tablet 10 mg PO HS Patient Comments: take 1 tablet by mouth at bedtime Discontinued carvedilol 3.125 mg Tablet 3.125 mg PO BID gabapentin 300 mg Capsule 300 mg PO TID No Action metformin 500 mg Tablet Extended Release 24 Hr 500 mg PO QDAY lisinopril 10 mg tablet 10 mg PO DAILY nitroglycerin 0.4 mg tablet, sublingual 0.4 mg buccal [id number] PRN (Reason: chest pain) Referrals: Brad Ramirez [Primary Care Provider] Patient/Caregiver Discharge Instructions Other Discharge Activity Instructions:: Stop taking Coreg until you see your supervisor personnel clerks. Decrease your gabapentin dose from 300TID to 100 TID. Hold off taking Meloxicam until you see your PCP. It can worsen your kidney function. Follow up with your supervisor personnel clerks in 1-2 weeks. Other Discharge Diet Instructions: Please maintain a low (2gram) sodium diet. Education Materials: Dehydration, Vertigo Staying Safe, Acute Kidney Failure Dc Print Language: Austrian Stand Alone Forms: Recite Me Award Info., Patient Portal Info Letter Discharge Order Discharge Orders: Discharge (Routine); Ordered 10/29/24 Ordered By: Jane Sutton Quality Discharge Quality Measures VTE prophylaxis Attestestation MD Attestation I have examined the patient, reviewed labs and imaging findings, discussed the case with the resident(s), and reviewed entered orders. I agree with the plan of care as outlined in this note. Time Spent: [address] Cole MD
[2024-10-29] MEDS: Magnesium Sulfate 2 GM Ivpb 2 GM/50 ML BAG IV (08:47)
[2024-10-29] MEDS: PANTOPRAZOLE 20 MG TABLET PO (08:47)
--- NOTE | 2024-10-29 17:14 | ESPR_ITS ---
Documentation for date of: 10/29/24 Subjective Subjective Interval history: Patient was seen and examined at bedside. Patient denied any dizziness, confusion, chest pain, palpitation. She underwent EGD in which she was found to have circumferential esophageal stenosis and which was dilated by Dr. Rey. Blood pressure stable, heart rate stable. 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 Objective Labs 10/29/24 04:30 10/29/24 04:30 Labs: Laboratory Results - last 24 hr 10/29/24 04:30 WBC 4.5 RBC 3.35 L Hgb 9.8 L Hct 30.3 L MCV 90 MCH 29.3 MCHC 32.3 RDW Std Deviation 47.1 H Plt Count 116 L Neut % (Auto) 57 Lymph % (Auto) 29 [place] % (Auto) 11 Eos % (Auto) 2 Baso % (Auto) 0 Neut # (Auto) 2.6 Lymph # (Auto) 1.3 [place] # (Auto) 0.5 Eos # (Auto) 0.1 Baso # (Auto) 0.0 Immature Gran # (Auto) 0.01 H Absolute Nucleated RBC 0.00 Immature Gran % 0 Nucleated RBC % 0 Sodium 146 H Potassium 4.2 Chloride 113 H Carbon Dioxide 22.5 Anion Gap 11 BUN 19 Creatinine 1.8 H Estim Creat Clear Calc 21.8 L eGFR 29 L BUN/Creatinine Ratio 11 L Glucose 99 Calculated Osmolality 292 Calcium 9.2 Corrected Calcium 9.8 Phosphorus 3.3 Magnesium 1.9 Total Bilirubin 0.3 AST 20 ALT 8 L Alkaline Phosphatase 49 Total Protein 5.2 L Albumin 3.3 L Globulin 1.9 L Albumin/Globulin Ratio 1.7 Quality Measures Quality Measures VTE prophylaxis Advance care planning discussed with:: patient Assessment & Plan Plan Summary: A 79-year-old female patient with past medical history of hypertension, hyperlipidemia, diabetes mellitus, coronary artery disease, CKD, history of hep C status posttreatment, was admitted due to intermittent dizziness. Patient reported that for the past week she has been having multiple episodes of dizziness, associated with headache. Patient was admitted for failure to thrive secondary to dysphagia and also for JAQUI. Cardiology team was consulted for presyncope workup. Assessment and plan #Presyncopal episode #Mild to moderate aortic stenosis #Dehydration #? Sinus node dysfunction #History of CHF #History of coronary artery disease Patient reported with near fainting, dizziness, and blackening of her vision for few minutes. Has been having the symptoms for the past week. 3 occasions. Patient has history of worsening dysphagia, recently she was unable to tolerate liquid diet. Patient continued to take her oral meds which includes carvedilol and lisinopril. On presentation her blood pressure was 90/53 and her heart rate was 50 beats per minute irregular heartbeats. EKG showed sinus bradycardia with no heart block or QT prolongation. Serum creatinine increased to 2.7 baseline 1.3-1.5. Most likely secondary to decreased oral intake and continue using diuretics. Orthostatic vitals showed normal response, his vitals were taken after the patient was resuscitated with 1 L of fluids and was on fluid maintenance. Less likely to be autonomic dysfunction secondary to her diabetes as all her A1c in her chart below 7. Patient today seems more hydrated, lying in bed comfortably. PT evaluation was negative, patient does not need any physical therapy treatments. Echocardiogram showed ejection fraction of 55 to 60% with diastolic dysfunction. Mild to moderate aortic stenosis Plan ? Lasix 20 mg p.o. as needed if increase in body weight by 3 pounds. Will hold until you see a finish off operator within 1 to 2 weeks. ? Hold lisinopril for now on discharge to be resumed by her PCP ? Hold carvedilol for now to be resumed by finish off operator ? Strict in and out ? Replete electrolytes as needed, keep potassium above 4 and magnesium above 2 #Dysphagia #JAQUI on CKD #Questionable COPD #History of hypertension #History of diabetes mellitus #History of hep C infection Plan ? Follow-up with the primary team with recommendations Thank you for your consultation,, please do not hesitate if you have any question or concerns. - Patient's plan and care discussed with my attending, Dr. Warner Anand MD Internal Medicine PGY-3
== END 2024-10-29 12:07 | disposition home or self-care (01) | DRG 682 ==
LOC: SERX 15:35 → SERHOLD 16:18 → S2NX 10-27 05:37 → SERHOLD 10-28 06:09 → S2NX 10-28 06:10
PROVIDERS: Emergency Medicine; Specialist; Admitting Provider Student in an Organized Health Care Education/Training Program; PCP Physician Assistant; Visit Provider Student in an Organized Health Care Education/Training Program
PROC: (CPT 43239; principal; 2024-10-27 16:00)
DX: N17.9 Acute kidney failure, unspecified (principal); G93.41 Metabolic encephalopathy; K29.71 Gastritis, unspecified, with bleeding; I13.0 Hypertensive heart and chronic kidney disease with heart failure and stage 1 through stage 4 chronic kidney disease, or unspecified chronic kidney disease; K76.6 Portal hypertension; I85.00 Esophageal varices without bleeding; H53.8 Other visual disturbances; E78.5 Hyperlipidemia, unspecified; I12.9 Hypertensive chronic kidney disease with stage 1 through stage 4 chronic kidney disease, or unspecified chronic kidney disease; E11.22 Type 2 diabetes mellitus with diabetic chronic kidney disease; N18.9 Chronic kidney disease, unspecified; E03.9 Hypothyroidism, unspecified; I25.10 Atherosclerotic heart disease of native coronary artery without angina pectoris; R13.10 Dysphagia, unspecified; R00.1 Bradycardia, unspecified; I95.9 Hypotension, unspecified; B18.2 Chronic viral hepatitis C; I49.5 Sick sinus syndrome; I50.9 Heart failure, unspecified; I35.0 Nonrheumatic aortic (valve) stenosis; H93.19 Tinnitus, unspecified ear; K22.2 Esophageal obstruction; K31.89 Other diseases of stomach and duodenum; Z79.84 Long term (current) use of oral hypoglycemic drugs; Z79.4 Long term (current) use of insulin; Z88.5 Allergy status to narcotic agent
CPT/HCPCS: 36415; 70450; 70496; 70498; 71045; 80053; 80061; 80307; 80320; 81001; 83036; 83735; 83880; 84100; 84443; 84484; 85025; 85610; 85730; 92526; 92610; 93005; 93306; 94640; 94664; 94667; 96360; 96361; 96372; 97162; 99285; A4649; A9270; C1769; G0378; J1200; J1644; J1956; J2250; J3010; J3475; J7030; Q9967; G0480

== ENCOUNTER 2024-11-29 06:48 | Emergency (ER) | payer OTHER, MEDICAID, SELFPAY ==
[2024-11-29] VITALS (8 sets, daily range): BP systolic 151–198; BP diastolic 68–88; PULSE 51–59; RESP 12–20; TEMP 36.3–37.1; O2SAT 96–99; BMI 32.2
--- NOTE | 2024-11-29 07:13 | XR_ITS ---
Examination: CT brain head without contrast. 2-D sagittal coronal reconstructions Date and time of exam:November 29, 2024, 0857 hrs. Comparison: October 26, 2024 Indications: Vertigo today, stroke alert on 10/26/2024 CTDI: vol (mGy):46.4 DLP: (mGycm):874 Technique: Multiple CT axial sections of the brain have been obtained, 5 mm slice thickness. Contrast has not been administered. 2-D sagittal, coronal reconstructions have been obtained Low dose protocols were performed. One or more of the following dose reduction techniques were used; automated exposure control, adjustment of the mA and/or KV according to patient size, use of iterative reconstruction technique. Findings: No significant ventricular enlargement. Intra-axial or extra-axial hemorrhage density is not seen. No mass effect or midline shift Basal cisterns are not remarkable. Fourth ventricle is midline. Cranial vault intact. Impression: Negative for acute hemorrhage, mass effect or midline shift In view of the patient's history, as clinically warranted, if symptoms persist, consider brain MRI MRA without contrast, stroke protocol, follow-up
--- NOTE | 2024-11-29 07:13 | XR_ITS ---
Examination: PA chest single view Technique: Upright PA chest single view Date and time: November 29, 2024, 0724 hrs., Comparison 10/26/2024 Indication: Chest pain shortness of breath today. Findings: Normal heart size. No pneumonia or pulmonary edema. Prominent osteopenia with old left-sided rib fractures Impression: No pneumonia or pulmonary edema
--- NOTE | 2024-11-29 07:13 | EKG_ITS ---
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
--- NOTE | 2024-11-29 07:13 | PD.EDRME ---
Rapid Medical Screening Exam E Arrival date/time: 11/29/24 06:48 This is a 79-year-old female that comes into the emergency room with complaints of feeling weak, dizziness, nausea and worsening tinnitus. Patient states that she feels like her heart is beating really slow. Patient reports that she has a issue with tinnitus in the past but it is significantly louder the past few days. Patient states that she feels like the world is spinning when she sits up. Patient does have a history of hyperlipidemia, high blood pressure, diabetes. Patient denies focal deficits, diplopia, blurry vision, chest pain, and shortness of breath. Patient reports not taking her blood pressure medication this morning. Patient's blood pressure 198/88 upon arrival I have greeted and performed a focused initial assessment of this patient. Initial appropriate labs ordered at this time. A comprehensive ED assessment and evaluation of the patient and analysis of all test and completion of medical decision making process will be conducted by additional ED provider. Chief Complaint: General Adult/Misc Complain Time Seen by Provider: 11/29/24 06:51 Vital signs: Vital Signs Temperature 98 F 11/29/24 07:04 Pulse Rate 59 L 11/29/24 07:04 Respiratory Rate 16 11/29/24 07:04 Blood Pressure 198/88 H 11/29/24 07:04 Pulse Oximetry (%) 97 11/29/24 07:04 Oxygen Delivery Method Room Air 11/29/24 07:04
[2024-11-29 08:05] LABS: Basophils # (Auto) 0.0 Thou/mm3 (0.0-0.2); Basophils % (Auto) 1 % (0-2.5); Eosinophils # (Auto) 0.1 Thou/mm3 (0.0-0.5); Eosinophils % (Auto) 3 % (0-10); Hematocrit 37.0 % (36.0-46.0); Hemoglobin 12.0 g/dL (12.0-16.0); Immature Granulocytes Auto 0.01 Thou/mm3 (0.00-0.00); Lymphocytes # (Auto) 1.6 Thou/mm3 (1.0-4.8); Lymphocytes % (Auto) 40 % (10-50); Mean Corpuscular HGB Conc 32.4 g/dl (31.0-37.0); Mean Corpuscular Hemoglobin 29.4 pg (25.0-35.0); Mean Corpuscular Volume 91 fL (80-100); Monocytes # (Auto) 0.4 Thou/mm3 (0.0-0.8); Monocytes % (Auto) 10 % (0-12); Neutrophils # (Auto) 1.9 Thou/mm3 (1.8-7.7); Neutrophils % (Auto) 47 % (37-80); Nucleated Red Blood Cell # 0.00 Thou/mm3 (0.00-0.00); Nucleated Red Blood Cell % 0 /100 WBC (0); Platelet Count 161 Thou/mm3 (140-440); RDW Standard Deviation 44.3 fL (36.4-46.3); Red Blood Count 4.08 Miln/mm3 (4.00-5.20); White Blood Count 4.1 Thou/mm3 (3.6-11.0)
[2024-11-29 08:26] LABS: B-Type Natriuretic Peptide 71 pg/mL (0-100)
[2024-11-29 08:29] LABS: Alanine Aminotransferase 18 U/L (10-49); Albumin, Serum 4.4 gm/dL (3.4-4.8); Albumin/Globulin Ratio 1.8 (1.2-2.2); Alkaline Phosphatase 57 U/L (46-116); Anion Gap 8 (7-16); Aspartate Amino Transferase 34 U/L (0-34); BUN/Creatinine Ratio 19 Ratio (12-20); Bilirubin,Total 0.6 mg/dL (0.3-1.2); Blood Urea Nitrogen 28 mg/dL (9-23); Calcium 9.8 mg/dL (8.3-10.6); Calcium (Corrected) 9.8 mg/dL (8.5-10.1); Carbon Dioxide 29.3 mMol/L (20.0-31.0); Chloride 107 mMol/L (98-107); Creatinine (Component) 1.5 mg/dL (0.6-1.3); Estimated Creatinine Clearance 28.4 mL/min (>60); Globulin 2.4 gm/dL (2.3-3.5); Glucose 105 mg/dL (74-106); Osmolality,Calculated 292 (275-295); Potassium 4.0 mMol/L (3.4-5.1); Sodium 144 mMol/L (136-145); Total Protein 6.8 gm/dL (5.7-8.2); Troponin I < 0.020 ng/mL (0.0-0.045); eGFR 36 See Note
--- NOTE | 2024-11-29 08:54 | PD.EDWEAK ---
ED Weakness RME/HPI General Chief complaint: General Adult/Misc Complain Stated complaint: BILATERAL EAR RINGING, NAUSEA,TIRED Time Seen by Provider: 11/29/24 06:51 Arrival date/time: 11/29/24 06:48 Limitations: no limitations RME / HPI RME / HPI Narrative: 11/29/24 06:48 This is a 79-year-old female that comes into the emergency room with complaints of feeling weak, dizziness, nausea and worsening tinnitus. Patient states that she feels like her heart is beating really slow. Patient reports that she has a issue with tinnitus in the past but it is significantly louder the past few days. Patient states that she feels like the world is spinning when she sits up. Patient does have a history of hyperlipidemia, high blood pressure, diabetes. Patient denies focal deficits, diplopia, blurry vision, chest pain, and shortness of breath. Patient reports not taking her blood pressure medication this morning. Patient's blood pressure 198/88 upon arrival I have greeted and performed a focused initial assessment of this patient. Initial appropriate labs ordered at this time. A comprehensive ED assessment and evaluation of the patient and analysis of all test and completion of medical decision making process will be conducted by additional ED provider. DR. AMANUEL HALL ED EVALUATION: 79-year-old female who presents to the Emergency Department with complaints of generalized weakness, dizziness, nausea, and worsening tinnitus over the past few days. She reports that her tinnitus has been chronic but is now significantly louder. She also describes a spinning sensation when sitting up and a feeling that her heart is beating really slow . She has a history of hypertension, hyperlipidemia, and diabetes mellitus. She did not take her blood pressure medication this morning. She denies chest pain, shortness of breath, focal weakness, diplopia, or visual changes. On arrival, her blood pressure was 198/88. Related Data Home Medications ?Medication ?Instructions ?Recorded ?Confirmed furosemide 40 mg tablet 40 mg PO QDAY 09/19/17 10/26/24 metformin 500 mg tablet,extended 500 mg PO QDAY Diabetes 09/19/17 10/26/24 release 24 hr atorvastatin 20 mg tablet 40 mg PO HS 12/16/21 10/26/24 lisinopril 10 mg tablet 10 mg PO DAILY 12/16/21 10/26/24 amitriptyline 10 mg tablet 10 mg PO HS 10/26/24 10/26/24 nitroglycerin 0.4 mg sublingual 0.4 mg buccal [id number] PRN chest 10/26/24 10/26/24 tablet pain Allergies Allergy/AdvReac Type Severity Reaction Status Date / Time codeine Allergy Severe Nausea Verified 11/29/24 06:50 Review of Systems Review of Systems Systems Reviewed: All systems reviewed, normal except as documented Past Medical History Past Medical History CARDIAC: Positive Cardiac Disorders, Angina, Hypercholesterolemia and Hypertension RESPIRATORY: Positive Pneumonia GASTROINTESTINAL: Positive Hepatitis and Hiatal Hernia GENITOURINARY: Positive Genitourinary Disorders and Renal Disease REPRODUCTIVE: Positive Previous Pregnancies MUSCULOSKELETAL: Positive Musculoskeletal Disorders, Arthritis and Osteoporosis ENDOCRINE: Positive Endocrine Disorders, Diabetes Mellitus Type 2 and Hypothyroidism OTHER HISTORY: Positive Falls and Blood Transfusions Surgical History SURGICAL: Positive Abdominal Surgery and Section Social History SMOKING STATUS: Never smoker SUBSTANCE USE: does not use ALCOHOL: Never ED Exam General Limitations: Present no limitations General appearance: Present alert and in no apparent distress Head Head exam: Present atraumatic, normocephalic and normal inspection Eye Eye exam: Present normal appearance, PERRL and EOMI ENT ENT exam: Present normal exam, normal oropharynx and mucous membranes moist Neck Neck exam: Present normal inspection, full ROM and trachea midline Chest Chest inspection: Present normal inspection and symmetric chest wall rise Respiratory Respiratory exam: Present normal lung sounds bilaterally Cardiovascular Cardiovascular exam: Present regular rate, normal rhythm and normal heart sounds Abdominal Exam Abdominal exam: Present soft and normal bowel sounds Extremities Exam Extremities exam: Present normal inspection and full ROM Back Exam Back exam: Present normal inspection and full ROM Neurological Exam Neurological exam: Present alert, oriented X3 and CN II-XII intact Psychiatric Psychiatric exam: Present normal affect and normal mood Skin Skin exam: Present warm, dry, intact and normal color Course Quality Measures none Orders Category Date Time Status EKG (ED ONLY) *Do not use* NOW Care 11/29/24 07:13 Completed EKG (ED ONLY) *Do not use* NOW Care 11/29/24 09:[address] head/brain wo con Stat Exams 11/29/24 07:13 Completed EKG (ED Only) Stat Exams 11/29/24 07:13 Draft EKG (ED Only) Stat Exams 11/29/24 09:36 Draft XR chest 1V Stat Exams 11/29/24 07:13 Completed BNP [B-Type Natriuretic Peptide] Stat Lab 11/29/24 07:21 Completed CBC Stat Lab 11/29/24 07:21 Completed Comprehensive Metabolic Panel Stat Lab 11/29/24 07:21 Completed T4 (Thyroxine) Stat Lab 11/29/24 09:20 Completed TSH [Thyroid Stimulating Hormone] Stat Lab 11/29/24 09:20 Completed Troponin I Stat Lab 11/29/24 07:21 Completed Ringers Lactated 1000 ml [Lactated Ringers] 1,000 ml Med 11/29/24 13:51 Discontinued IV 1,000 mls/hr Ringers Lactated 500 ml [Lactated Ringers] 500 ml Med 11/29/24 13:32 Discontinued IV 500 mls/hr Ringers Lactated 500 ml [Lactated Ringers] 500 ml Med 11/29/24 13:53 Discontinued IV 999 mls/hr Vital Signs Vital signs: Vital Signs Temperature 98 F 11/29/24 07:04 Pulse Rate 59 L 11/29/24 07:04 Respiratory Rate 16 11/29/24 07:04 Blood Pressure 198/88 H 11/29/24 07:04 Pulse Oximetry (%) 97 11/29/24 07:04 Oxygen Delivery Method Room Air 11/29/24 07:04 Weakness MDM Narrative MDM Narrative:: his is a 79-year-old female that comes into the emergency room with complaints of feeling weak, dizziness, nausea and worsening tinnitus. Patient states that she feels like her heart is beating really slow. Patient reports that she has a issue with tinnitus in the past but it is significantly louder the past few days. Patient states that she feels like the world is spinning when she sits up. Patient does have a history of hyperlipidemia, high blood pressure, diabetes. Patient denies focal deficits, diplopia, blurry vision, chest pain, and shortness of breath. Patient reports not taking her blood pressure medication this morning. Patient's blood pressure 198/88 upon arrival I have greeted and performed a focused initial assessment of this patient. Initial appropriate labs ordered at this time. A comprehensive ED assessment and evaluation of the patient and analysis of all test and completion of medical decision making process will be conducted by additional ED provider. Patient is a 79-year-old female with medical history notable for hyperlipidemia, diabetes, chronic tinnitus that seen emerged from concerns for feeling weak and dizzy. Vital signs and exam as listed. Prior provider evaluated patient. Ordered labs, EKG, CT brain chest x-ray. Concern for metabolic disturbance, intracranial hemorrhage, urinary tract infection among others. Labs without any acute hematologic or significant electrolyte disturbance. Patient has a history of chronic kidney disease creatinine is at her baseline. No significant transaminitis troponin not elevated. BNP normal. EKG performed today at 714 in the morning notable for sinus bradycardia, with occasional PVCs, heart rate 55, normal intervals, nonspecific T wave changes, not a cardiac alert. Head CT without any acute abnormalities. Thyroid studies w/o any sig abnl. 9:35a discussed case with Dr. Rod....reviewed case and evaluated patient. No emergent cardiac interventions at time recommended. Recommends patient establish care with an ENT specialist and hydrate well. Recommends gentle hydration with 500cc fluid bolus in the ED On re-eval patient HD stable, NAD. will dc to home with close return precautions and follow up with PCP, cardiology and ENT. I, Marita Naylor am scribing for and in the presence of Dr. Lester. Patient data External records reviewed:: [facility] previous records Clinical information provided by:: patient Social determinants that could affect healthcare access:: none Patient has the following chronic illnesses:: History of hypertension, hyperlipidemia, and diabetes mellitus. How is presenting disease/condition affected by chronic disease/condition?: exacerbated by Evaluation data The following diagnostics were reviewed and interpreted by me:: lab results, radiology exam(s) and EKG tracing(s) (My interpretation: EKG performed at 0949 hours, sinus bradycardia, rate 54, normal intervals, non specific T wave changes, not a cardiac alert) Lab and/or radiology exams considered but not ordered:: None Interpretation Summary: See MDM narrative above. RADIOLOGY Procedure(s): XR chest 1V Accession Number(s): [id number] cc: Brad Ramirez ; Omar Magaña MD; Salma Chaidez NP~ Examination: PA chest single view Technique: Upright PA chest single view Date and time: November 29, 2024, 0724 hrs., Comparison 10/26/2024 Indication: Chest pain shortness of breath today. Findings: Normal heart size. No pneumonia or pulmonary edema. Prominent osteopenia with old left-sided rib fractures Impression: No pneumonia or pulmonary edema Dictated By: Omar Magaña MD Procedure(s): CT head/brain wo con Accession Number(s): [id number] cc: Brad Ramirez ; Omar Magaña MD; Salma Chaidez NP~ Examination: CT brain head without contrast. 2-D sagittal coronal reconstructions Date and time of exam:November 29, 2024, 0857 hrs. Comparison: October 26, 2024 Indications: Vertigo today, stroke alert on 10/26/2024 CTDI: vol (mGy):46.4 DLP: (mGycm):874 Technique: Multiple CT axial sections of the brain have been obtained, 5 mm slice thickness. Contrast has not been administered. 2-D sagittal, coronal reconstructions have been obtained Low dose protocols were performed. One or more of the following dose reduction techniques were used; automated exposure control, adjustment of the mA and/or KV according to patient size, use of iterative reconstruction technique. Findings: No significant ventricular enlargement. Intra-axial or extra-axial hemorrhage density is not seen. No mass effect or midline shift Basal cisterns are not remarkable. Fourth ventricle is midline. Cranial vault intact. Impression: Negative for acute hemorrhage, mass effect or midline shift In view of the patient's history, as clinically warranted, if symptoms persist, consider brain MRI MRA without contrast, stroke protocol, follow-up Dictated By: Omar Magaña MD Medications / Prescriptions Medications or Prescriptions considered but not ordered:: None Medication administrations:: Medication Administration History Discontinued Medications Lactated Ringer's (Lactated Ringers) 500 mls @ 500 mls/hr IV .Q1H ONE Stop: 11/29/24 14:31 Last Admin: 11/29/24 14:53 Dose: Not Given Documented By: BY Non-Admin Reason: Discontinued Lactated Ringer's (Lactated Ringers) 1,000 mls @ 1,000 mls/hr IV .Q1H ONE Stop: 11/29/24 14:50 Lactated Ringer's (Lactated Ringers) 500 mls @ 999 mls/hr IV .Q31M ONE Stop: 11/29/24 14:23 Last Infusion: 11/29/24 14:53 Dose: Infused Documented By: Admin: 11/29/24 14:17 Dose: 999 mls/hr Documented By: CS None Consultations Consultation(s) initiated? (list below): No Diagnosis Weakness Differential Diagnosis: other (Vertigo, labyrinthitis, and hypertensive urgency.) Most likely diagnosis given after review of the tests above:: Dehydration Admission Indicated Admission indicated?: not indicated Admission Request Was there a request for admission?: No Disposition Plan Disposition Plan: Discharge Discharge Attestation Discharge Attestation: The patient and all family members were given an opportunity to ask questions and understood the discharge instructions. Discharge instructions specifically effects, indications for sooner follow up or return to the emergency department, and the expected course of current diagnosis. Patient condition: Stable Discharge Plan Plan Patient Disposition: HOME (Self Care) Prescriptions/Referrals Prescriptions/Med Rec: No Action furosemide 40 mg Tablet 40 mg PO QDAY metformin 500 mg Tablet Extended Release 24 Hr 500 mg PO QDAY atorvastatin 20 mg tablet 40 mg PO HS lisinopril 10 mg tablet 10 mg PO DAILY amitriptyline 10 mg tablet 10 mg PO HS Patient Comments: take 1 tablet by mouth at bedtime nitroglycerin 0.4 mg tablet, sublingual 0.4 mg buccal [id number] PRN (Reason: chest pain) Referrals: Brad Ramirez [Primary Care Provider] - In 1 week Problem List Clinical Impression: Dehydration Patient/Caregiver Discharge Instructions Education Materials: Dehydration Additional Instructions: Castillo cardiologo la evaluo y la quiera rachel en castillo oficina la proxima semana. Es importante que se mantenga suzy hidratada. Tambien necesita lavinia con un otorrinologo para evaluacion del sumbido en caroline oidos. Regresar si regresan sintomas o tiene sintoma de preocupacion. Print Language: Colombian Stand Alone Forms: June Award Info., Patient Portal Info Letter
--- NOTE | 2024-11-29 09:36 | EKG_ITS ---
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
[2024-11-29 09:55] LABS: Thyroid Stimulating Hormone 3.35 uIU/mL (0.55-4.78)
[2024-11-29 10:30] LABS: T4 (Thyroxine) 8.9 mcg/dL (4.5-10.9)
--- NOTE | 2024-11-29 11:18 | PD.RESCONSUL ---
HPI Data of Consult Primary Care Provider: Brad Ramirez Consult Narrative History of present illness: Patient is a 79-year-old female patient with past medical history of hypertension, hyperlipidemia, diabetes mellitus, coronary artery disease, CKD, history of hep C status posttreatment, who presents to the ED on 11/29 again for intermittent dizziness. Was previously admitted in early October for same symptoms. Continues to endorse tinnitus and ear fullness. Describes dizziness as room spinning and worse with positional changes. Denies chest pain, shortness of breath, palpitations. Was seen at [facility] since last admission. Reports she is taking furosemide 40 mg half a tablet every other day and all other medications as instructed. In the ED, BP 198/88, decreased to 150/68 without intervention. Patient was bradycardic, heart rate 59 to low 60s. Saturating well on room air. Hemoglobin 12.0, note baseline appears to be around 9-10. Platelets also elevated. Potassium 4.0, BUN 28, creatinine 1.5. Troponins negative, BNP 71. Baseline labs appears to be hemoconcentrated, likely dehydrated from overdiuresis. Past Medical History: As above Family History: Noncontributory Surgical History: cholecystectomy, 4-5x hernia repairs, Social History: Denies history of smoking, denies current alcohol use, denies recreational drug use Current Medications: Amitriptyline 10 mg nightly, atorvastatin 40 mg nightly, furosemide 40 mg half a tablet every other day, lisinopril 10 mg daily, metformin 500 mg daily Allergies: No known drug allergies cc:: cc: Exam Vital Signs Temp Pulse Resp BP Pulse Ox O2 Del Method 97.7 F 54 L 20 158/83 H 99 Room Air 11/29/24 10:21 11/29/24 10:21 11/29/24 10:21 11/29/24 10:21 11/29/24 10:21 11/29/24 10:21 Narrative Exam Physical Exam General: Awake and in no acute distress. Conversational and non-toxic appearing. Pleasant Kiswahili-speaking elderly female. HEENT: Normocephalic, atraumatic, mucous membranes moist. Heart: Bradycardic. Regular rate and rhythm, normal S1 and S2, no murmurs appreciated. Lungs: Clear to auscultation with no wheezing or crackles. Abdomen: Soft, nondistended, nontender, positive bowel sounds. No guarding or rebound tenderness. Neurologic: Alert and oriented x3, no gross neurological deficit, and patient able to move all 4 extremities. Extremities: No edema. Skin: No rash or ecchymoses. Results Labs 11/29/24 07:21 11/29/24 07:21 Labs: Short CBC 11/29/24 Range/Units 07:21 WBC 4.1 (3.6-11.0) Thou/mm3 Hgb 12.0 (12.0-16.0) g/dL Hct 37.0 (36.0-46.0) % Plt Count 161 D (140-440) Thou/mm3 BMP 11/29/24 07:21 Sodium 144 Potassium 4.0 Chloride 107 Carbon Dioxide 29.3 BUN 28 H Creatinine 1.5 H Glucose 105 Calcium 9.8 Cardiac Enzymes 11/29/24 Range/Units 07:21 Troponin I < 0.020 (0.0-0.045) ng/mL Liver Function 11/29/24 Range/Units 07:21 Total Bilirubin 0.6 (0.3-1.2) mg/dL AST 34 (0-34) U/L ALT 18 (10-49) U/L Alkaline Phosphatase 57 (46-116) U/L Albumin 4.4 (3.4-4.8) gm/dL Quality Measures Quality Measures none Advance care planning discussed with:: patient Medications Home Medications and Allergies Home Medications ?Medication ?Instructions ?Recorded ?Confirmed ?Type furosemide 40 mg tablet 40 mg PO QDAY 09/19/17 10/26/24 History metformin 500 mg tablet,extended 500 mg PO QDAY Diabetes 09/19/17 10/26/24 History release 24 hr atorvastatin 20 mg tablet 40 mg PO HS 12/16/21 10/26/24 History lisinopril 10 mg tablet 10 mg PO DAILY 12/16/21 10/26/24 History amitriptyline 10 mg tablet 10 mg PO HS 10/26/24 10/26/24 History nitroglycerin 0.4 mg sublingual 0.4 mg buccal [id number] PRN chest 10/26/24 10/26/24 History tablet pain Allergies Allergy/AdvReac Type Severity Reaction Status Date / Time codeine Allergy Severe Nausea Verified 11/29/24 06:50 Assessment & Plan Plan Patient is a 79-year-old female patient with past medical history of hypertension, hyperlipidemia, diabetes mellitus, coronary artery disease, CKD, history of hep C status posttreatment, who presents to the ED on 11/29 again for intermittent dizziness, likely BPPV. #Dizziness #Dehydration # ? Sinus node dysfunction # HFpEF (EF 55 to 60%) (10/28/2024) #Grade 1 diastolic dysfunction #Moderate aortic stenosis #History of coronary artery disease Presents again with same symptoms of intermittent dizziness that is exacerbated by positional changes as well as persistent tinnitus and ear fullness. Has been taking Lasix 20 mg every other day as well as lisinopril 10 daily. EKG shows sinus bradycardia with occasional PVCs. Heart rate 55. Echo 10/27/2024 showed normal left ventricular size and function. Grade I diastolic dysfunction. Approximate ejection fraction is 55- 60%. Normal Right ventricular size and function. RVSP 39 mmHg with RAP 3. Mild- Moderate HTN. Mild thickening of the aortic valve leaflets. Mild AR and moderate aortic stenosis. Mild -moderate TR Previous orthostatic vitals showed normal response, however no vitals were taken after the patient was resuscitated with 1 L of fluids and was on fluid maintenance. Less likely to be autonomic dysfunction secondary to her diabetes as all her A1c in her chart below 7. Plan ?Continue Lasix 20 mg every other day. Stable to follow-up outpatient from cardiology standpoint. Will consider placing patient on Holter monitor to further rule out any cardiac etiologies. ?Based on description of symptoms, likely BPPV versus M?ni?re's. Recommend that patient be referred to ENT specialist. Thank you for your consultation, please do not hesitate to reach out if you have any question or concern Patient plan of care was discussed with the attending physician, Dr. Rod. Helen Wilkinson, PGY-1 Attending Provider Attestation/Addendum I have personally seen and examined the patient separately on the above date of service and discussed the plan of care with the resident. I reviewed the resident Dr. Helen Wilkinson consultation progress note and agree with the resident findings and plan in the note above and have also edited the documentation to reflect my findings and plan. Patient known to me from previous hospitalization and then she followed up with me in the office months and was scheduled for a Holter monitoring. Again presented with intermittent dizziness but did not have any presyncope or fall. Still continues to have tinnitus as well as ear fullness. Patient continued to have a bradycardia also during this admission as she had a October 2024. EKG did show sinus bradycardia at 52 bpm without any acute ST-T changes. Blood pressure was also high at admission at 198/88 mmHg and later was 158/88 mmHg. Heart rate at 1 point of time was in the high 40s but no evidence of any significant pauses or any kind of AV block. Patient was instructed during the last admission to take Lasix 20 mg every other day which she has been taking as prescribed. Evaluating the labs patient appears to be mildly hemoconcentrated from poor oral intake along with the diuretics. BUN is 28 and creatinine is 1.5 and better than before. Hemoglobin is 12 compared to previous 10.5. She previously had had the studies done in my office also which were negative. Overall presentation appears to be mild dehydration along with uncontrolled hypertension. Patient with dizziness along with some tinnitus as well as positional changes with her ear fullness indicating possible middle ear problems and recommended to check with ENT physician. Echo from previous admission reviewed and patient does have moderate aortic valve stenosis with a V-max of 3.2 m/s and a mean gradient of 28 mmHg and a valve area of 1.0-1.2 cm?. Normal RV size and function. Grade 1 diastolic dysfunction mild to moderate pulmonary hypertension with an RVSP of 40-45 mmHg. Mild to moderate TR. Recommended to give IV fluids for today and patient recommended to hold diuretics Lasix for couple more days and then restart from Saturday and then follow-up in the clinic in 1 week. Recommended again to follow-up with the ENT. Regarding her hypertension patient is on lisinopril 10 mg once daily and recommend to increase to 20 mg once daily and continue to uptitrate as outpatient. Okay to discharge from cardiac perspective Warner Rod M.D. Interventional Cardiology
[2024-11-29] MEDS: RINGERS LACTATED 500 ML 500 ML 999 ML IV (14:17)
== END 2024-11-29 14:58 | disposition home or self-care (01) ==
PROVIDERS: Nurse Practitioner Family; Emergency Provider Emergency Medicine; PCP Physician Assistant
DX: E86.0 Dehydration (principal); E78.5 Hyperlipidemia, unspecified; H93.13 Tinnitus, bilateral
CPT/HCPCS: 36415; 70450; 71045; 80053; 83880; 84436; 84443; 84484; 85025; 93005; 96360; 99284; J7120

== ENCOUNTER → 2024-12-07 | Outpatient (CLI) | payer OTHER, MEDICAID, SELFPAY ==
--- NOTE | 2024-12-07 14:00 | XR_ITS ---
Examination: Retroperitoneal ultrasound, complete Technique: Multiple high resolution grayscale images of the retroperitoneum obtained, including kidneys and bladder. Exam date and time: December 07, 2024, 1430 hours INDICATIONS: Chronic kidney disease stage III on laboratory examination November 29, 2024 FINDINGS: Right kidney 8.4 cm renal cortex 0.9 cm Left kidney 9.0 cm renal cortex 1.3 cm Mild renal scar formation, no hydronephrosis No bladder mass or bladder calculi, bladder prevoid volume 306 cc unable to void IMPRESSION: Small kidneys with bilateral renal cortical thinning Mild bilateral renal scar formation
== END | disposition home or self-care (01) ==
PROVIDERS: PCP Physician Assistant; Referring Provider Internal Medicine; Visit Provider Internal Medicine
DX: N28.89 Other specified disorders of kidney and ureter (principal); N18.30 Chronic kidney disease, stage 3 unspecified
CPT/HCPCS: 76770